=== PATIENT | male | born 1980 | race Caucasian/White ===

== ENCOUNTER 2020-12-03 21:43 | Emergency (ER) | payer MEDICAID ==
[~2020-12-03] VITALS: Ht 172.7 cm; Wt 77.0 kg
[2020-12-03] MEDS ORDERED: LEVE1000 MT (22:14)
[2020-12-03] MEDS ORDERED: LEVETIRACETAM 500MG/5ML CUP PO ONE (22:15)
[2020-12-03] MEDS ORDERED: LORAZEPAM 2MG/ML CPJ IM PRN (22:24)
[2020-12-03] MEDS ORDERED: LEVETIRACETAM 500MG PREMIX 100 ML IV ONE ×2 (22:24→22:25)
[2020-12-03] MEDS ORDERED: LORAZEPAM 2MG/ML CPJ IV ONE (22:30)
[2020-12-03] MEDS ORDERED: ONDANSETRON HCL 4MG/2ML INJ IV ONE (22:45)
[2020-12-04 00:16] LABS: BASOPHILS % 0.3 % (0.0-2.0); EOSINOPHILS % 0.7 % (0.0-5.0); HEMATOCRIT. 42.7 % (42.0-52.0); HEMOGLOBIN. 14.1 g/dL (14.0-18.0); LYMPHOCYTES % 19.4 % (20.0-50.0); MEAN CORPUSCULAR HEMOGLOBIN 26.9 pg (28.0-32.0); MEAN CORPUSCULAR VOLUME 81.3 fL (80.0-94.0); MEAN PLATELET VOLUME 8.5 fl (7.4-10.4); MONOCYTES % 8.2 % (2.0-8.0); NEUTROPHILS % 71.4 % (40.0-76.0); PLATELET 188 x1000/uL (130-400); RED BLOOD CELL COUNT 5.25 mill/uL (4.7-6.1); RED CELL DISTRIBUTION WIDTH 15.7 % (11.6-14.6)
[2020-12-04 00:22] LABS: CHLORIDE 106 mEq/L (98-107)
[2020-12-04 00:26] LABS: ETHANOL BLOOD < 10 mg/dL
[2020-12-04] MEDS ORDERED: KEPP250 MT (01:20)
[2020-12-04] MEDS ORDERED: LEVE1000 MT (01:21)
[2020-12-04] MEDS ORDERED: ONDA8TAB13 MT (01:24)
[2020-12-04] MEDS ORDERED: TRAM-529 MT (01:24)
[2020-12-04 01:25] VITALS: BP 134/79
== END 2020-12-04 01:53 | disposition home or self-care (01) ==
LOC: EDBD 21:43 → ER 23:34
DX: G40.909 Epilepsy, unspecified, not intractable, without status epilepticus (principal); K85.90 Acute pancreatitis without necrosis or infection, unspecified
CPT/HCPCS: 36415; 80053; 80320; 82962; 83690; 85025; 93005; 96365; 96366; 96375; 99291; J1953; J2405; J2060; G0480

== ENCOUNTER 2020-12-07 03:53 | Emergency (ER) | payer MEDICAID ==
[~2020-12-07] VITALS: Ht 175.3 cm; Wt 82.0 kg
[~2020-12-07 03:53] MED LIST: KEPP250 MT; LEVE1000 MT; ONDA8TAB13 MT; TRAM-529 MT
[2020-12-07] MEDS ORDERED: FAMOTIDINE 20MG/2ML VIAL IV STA (04:17)
[2020-12-07] MEDS ORDERED: MAGNESIUM/ALUMINUM HYDROXIDE/SIMETHICONE 30ML UDC PO STA (04:17)
[2020-12-07] MEDS ORDERED: SODIUM CHLORIDE 0.9% 1,000 ML IV ONE (04:30)
[2020-12-07 04:37] LABS: BASOPHILS % 0.2 % (0.0-2.0); EOSINOPHILS % 0.9 % (0.0-5.0); HEMATOCRIT. 46.5 % (42.0-52.0); HEMOGLOBIN. 15.1 g/dL (14.0-18.0); LYMPHOCYTES % 16.5 % (20.0-50.0); MEAN CORPUSCULAR HEMOGLOBIN 26.2 pg (28.0-32.0); MEAN CORPUSCULAR VOLUME 80.9 fL (80.0-94.0); MEAN PLATELET VOLUME 8.6 fl (7.4-10.4); MONOCYTES % 5.3 % (2.0-8.0); NEUTROPHILS % 77.1 % (40.0-76.0); PLATELET 202 x1000/uL (130-400); RED BLOOD CELL COUNT 5.75 mill/uL (4.7-6.1); RED CELL DISTRIBUTION WIDTH 16.1 % (11.6-14.6)
[2020-12-07] MEDS ORDERED: LEVETIRACETAM 1000MG PREMIX 100 ML IV ONE (04:45)
[2020-12-07 04:47] LABS: CHLORIDE 108 mEq/L (98-107); INR 1.1; PROTHROMBIN TIME 11.6 sec (9.6-11.0)
[2020-12-07] MEDS ORDERED: FAMO-135 MT (06:14)
[2020-12-07 06:15] VITALS: BP 124/90
== END 2020-12-07 06:30 | disposition home or self-care (01) ==
LOC: ER 04:14
DX: R10.9 Unspecified abdominal pain (principal); R56.9 Unspecified convulsions
CPT/HCPCS: 36415; 80053; 83690; 85025; 85610; 93005; 96365; 96375; 99284; J1953; J3490; J7030

== ENCOUNTER → 2021-01-06 | Emergency (ER) | payer MEDICAID ==
[~2021-01-06] VITALS: Ht 167.6 cm; Wt 82.0 kg
[~2021-01-06] MED LIST changes: +FAMO-135 MT; +KETOROLAC 30MG/ML VIAL IV ONE; +LEVETIRACETAM 1000MG PREMIX 100 ML IV ONE; +LORAZEPAM 2MG/ML CPJ IV ONE; +MORPHINE SULFATE 4 MG/ML CPJ (NOT FOR IM USE) IV STA; +ONDANSETRON HCL 4MG/2ML INJ IV STA
[2021-01-06 15:05] LABS: CHLORIDE 104 mEq/L (98-107)
[2021-01-06 15:19] LABS: BASOPHILS % 0.4 % (0.0-2.0); EOSINOPHILS % 0.5 % (0.0-5.0); HEMATOCRIT. 45.1 % (42.0-52.0); HEMOGLOBIN. 15.4 g/dL (14.0-18.0); MEAN CORPUSCULAR HEMOGLOBIN 27.6 pg (28.0-32.0); MEAN CORPUSCULAR VOLUME 80.9 fL (80.0-94.0); MEAN PLATELET VOLUME 8.9 fl (7.4-10.4); MONOCYTES % 6.4 % (2.0-8.0); NEUTROPHILS % 71.7 % (40.0-76.0); PLATELET 201 x1000/uL (130-400); RED BLOOD CELL COUNT 5.58 mill/uL (4.7-6.1); RED CELL DISTRIBUTION WIDTH 16.6 % (11.6-14.6)
[2021-01-06 16:15] LABS: INR 1.1; PROTHROMBIN TIME 11.8 sec (9.6-11.0)
[2021-01-06 21:12] VITALS: BP 139/75
== END | disposition left against medical advice (07) ==
LOC: ER 12:08
DX: G40.909 Epilepsy, unspecified, not intractable, without status epilepticus (principal); K85.90 Acute pancreatitis without necrosis or infection, unspecified; R10.31 Right lower quadrant pain; K21.9 Gastro-esophageal reflux disease without esophagitis; F12.10 Cannabis abuse, uncomplicated
CPT/HCPCS: 36415; 74176; 80053; 83690; 85025; 85610; 96365; 96375; 99285; J1885; J1953; J2060

== ENCOUNTER 2021-01-13 16:51 | Emergency (ER) | payer MEDICAID, MEDICARE ==
[~2021-01-13] VITALS: Ht 177.8 cm; Wt 91.0 kg
[~2021-01-13 16:51] MED LIST changes: -KETOROLAC 30MG/ML VIAL IV ONE; -LEVETIRACETAM 1000MG PREMIX 100 ML IV ONE; -LORAZEPAM 2MG/ML CPJ IV ONE; -MORPHINE SULFATE 4 MG/ML CPJ (NOT FOR IM USE) IV STA; -ONDANSETRON HCL 4MG/2ML INJ IV STA
[2021-01-13 16:56] VITALS: BP 126/84
== END 2021-01-13 19:03 | disposition left against medical advice (07) ==
LOC: ER 17:20
DX: R10.13 Epigastric pain (principal); R11.10 Vomiting, unspecified; G40.909 Epilepsy, unspecified, not intractable, without status epilepticus; K21.9 Gastro-esophageal reflux disease without esophagitis
CPT/HCPCS: 99283

== ENCOUNTER 2021-02-06 16:53 | Emergency (ER) | payer MEDICARE, MEDICAID ==
[~2021-02-06] VITALS: Ht 172.7 cm; Wt 93.0 kg
[2021-02-06] MEDS ORDERED: ONDANSETRON 4MG ODT PO STA (17:17)
[2021-02-06] MEDS ORDERED: ACETAMINOPHEN 325MG TABLET PO STA (17:17)
[2021-02-06 18:07] LABS: BASOPHILS % 0.2 % (0.0-2.0); EOSINOPHILS % 0.6 % (0.0-5.0); HEMATOCRIT. 44.1 % (42.0-52.0); HEMOGLOBIN. 14.8 g/dL (14.0-18.0); LYMPHOCYTES % 14.7 % (20.0-50.0); MEAN CORPUSCULAR VOLUME 80.7 fL (80.0-94.0); MEAN PLATELET VOLUME 8.4 fl (7.4-10.4); MONOCYTES % 9.1 % (2.0-8.0); NEUTROPHILS % 75.4 % (40.0-76.0); PLATELET 219 x1000/uL (130-400); RED BLOOD CELL COUNT 5.46 mill/uL (4.7-6.1); RED CELL DISTRIBUTION WIDTH 16.3 % (11.6-14.6)
[2021-02-06 18:14] LABS: CHLORIDE 102 mEq/L (98-107)
[2021-02-06 18:18] LABS: PROTHROMBIN TIME 10.7 sec (9.6-11.0)
[2021-02-06] MEDS: SODIUM CHLORIDE 0.9% 1,000 ML IV ONE ×2 (19:45→22:27)
[2021-02-06] MEDS: LEVETIRACETAM 500MG PREMIX 100 ML IV ONE (22:27)
[2021-02-07] MEDS: ACETAMINOPHEN 325MG TABLET PO NR (00:01)
[2021-02-07] MEDS: ONDANSETRON 4MG ODT PO NR (00:01)
[2021-02-07 01:37] VITALS: BP 120/71
== END 2021-02-07 01:40 | disposition home or self-care (01) ==
LOC: ER 16:53
DX: R56.9 Unspecified convulsions (principal); F12.10 Cannabis abuse, uncomplicated; K21.9 Gastro-esophageal reflux disease without esophagitis; Z86.59 Personal history of other mental and behavioral disorders
CPT/HCPCS: 36415; 80053; 82962; 83605; 84484; 85025; 96365; 99285; J1953; J7030; Q0162

== ENCOUNTER 2021-08-13 12:48 | Emergency (ER) | payer MEDICAID ==
[~2021-08-13] VITALS: Ht 175.3 cm; Wt 87.0 kg
[2021-08-13] MEDS ORDERED: ONDANSETRON HCL 4MG/2ML INJ IV STA (13:14)
[2021-08-13] MEDS ORDERED: SODIUM CHLORIDE 0.9% 1,000 ML IV ONE ×2 (13:15→16:30)
[2021-08-13 13:28] LABS: BASOPHILS % 0.6 % (0.0-2.0); EOSINOPHILS % 1.1 % (0.0-5.0); HEMATOCRIT. 43.1 % (42.0-52.0); HEMOGLOBIN. 14.3 g/dL (14.0-18.0); LYMPHOCYTES % 20.8 % (20.0-50.0); MEAN CORPUSCULAR HEMOGLOBIN 27.5 pg (28.0-32.0); MEAN CORPUSCULAR VOLUME 82.7 fL (80.0-94.0); MEAN PLATELET VOLUME 8.2 fl (7.4-10.4); MONOCYTES % 7.3 % (2.0-8.0); NEUTROPHILS % 70.2 % (40.0-76.0); PLATELET 235 x1000/uL (130-400); RED BLOOD CELL COUNT 5.21 mill/uL (4.7-6.1); RED CELL DISTRIBUTION WIDTH 15.3 % (11.6-14.6)
[2021-08-13 13:34] LABS: CHLORIDE 105 mEq/L (98-107)
[2021-08-13] MEDS ORDERED: KETOROLAC 30MG/ML VIAL IV ONE (13:45)
[2021-08-13] MEDS ORDERED: MORPHINE SULFATE 4 MG/ML CPJ (NOT FOR IM USE) IV ONE (18:15)
[2021-08-13 19:02] LABS: CLARITY URINE CLEAR (CLEAR); COLOR URINE YELLOW (YELLOW); KETONES URINE NEGATIVE (NEGATIVE); LEUKOCYTE ESTERASE URINE NEGATIVE (NEGATIVE); NITRITE URINE NEGATIVE (NEGATIVE); OCCULT BLOOD URINE TRACE (NEGATIVE); PROTEIN URINE 1+ (NEGATIVE); SPECIFIC GRAVITY URINE 1.013 (1.005-1.030); UROBILINOGEN URINE 0.2 E.U./dL (0.2-1.0)
[2021-08-13 22:44] VITALS: BP 129/82
== END 2021-08-13 23:17 | disposition left against medical advice (07) ==
LOC: ER 12:56 → EDBEDREQSVC 18:54 → CANBEDREQ 22:46 → ER 23:17
DX: K85.90 Acute pancreatitis without necrosis or infection, unspecified (principal); K21.9 Gastro-esophageal reflux disease without esophagitis; R56.9 Unspecified convulsions; Z20.822 Contact with and (suspected) exposure to COVID-19
CPT/HCPCS: 36415; 76705; 80053; 81003; 83690; 85025; 87426; 96361; 96374; 96375; 99285; J1885; J2270; J2405; J7030

== ENCOUNTER 2021-08-18 14:01 | Emergency (ER) | payer MEDICAID ==
[~2021-08-18] VITALS: Ht 167.6 cm; Wt 91.0 kg
[2021-08-18] MEDS ORDERED: MAGNESIUM/ALUMINUM HYDROXIDE/SIMETHICONE 30ML UDC PO STA (15:23)
[2021-08-18] MEDS ORDERED: FAMOTIDINE 20MG/2ML VIAL IV STA (15:23)
[2021-08-18] MEDS ORDERED: SODIUM CHLORIDE 0.9% 1,000 ML IV ONE (15:30)
[2021-08-18] MEDS ORDERED: KETOROLAC 15MG/ML VIAL IV ONE (15:45)
[2021-08-18 15:59] LABS: BASOPHILS % 0.3 % (0.0-2.0); EOSINOPHILS % 0.6 % (0.0-5.0); HEMATOCRIT. 40.5 % (42.0-52.0); HEMOGLOBIN. 13.5 g/dL (14.0-18.0); LYMPHOCYTES % 16.1 % (20.0-50.0); MEAN CORPUSCULAR HEMOGLOBIN 27.5 pg (28.0-32.0); MEAN CORPUSCULAR VOLUME 82.8 fL (80.0-94.0); PLATELET 205 x1000/uL (130-400); RED CELL DISTRIBUTION WIDTH 14.9 % (11.6-14.6)
[2021-08-18 16:03] LABS: CHLORIDE 105 mEq/L (98-107)
[2021-08-18 16:07] LABS: ETHANOL BLOOD < 10 mg/dL
[2021-08-18 18:18] VITALS: BP 138/71
[2021-08-18] MEDS ORDERED: ONDANSETRON HCL 4MG/2ML INJ IV ONE (18:30)
== END 2021-08-18 18:50 | disposition left against medical advice (07) ==
LOC: ER 14:01
DX: R10.13 Epigastric pain (principal); K85.90 Acute pancreatitis without necrosis or infection, unspecified; G40.909 Epilepsy, unspecified, not intractable, without status epilepticus; R11.10 Vomiting, unspecified; F12.10 Cannabis abuse, uncomplicated
CPT/HCPCS: 36415; 71045; 80053; 80320; 83605; 83690; 83880; 84484; 85025; 93005; 96361; 96374; 96375; 99285; J1885; J3490; J7030; G0480

== ENCOUNTER 2021-08-20 13:26 | Emergency (ER) | payer MEDICAID ==
[~2021-08-20] VITALS: Ht 167.6 cm; Wt 91.0 kg
[2021-08-20] MEDS ORDERED: ONDANSETRON HCL 4MG/2ML INJ IV STA (14:17)
[2021-08-20] MEDS ORDERED: SODIUM CHLORIDE 0.9% 1,000 ML IV ONE (14:30)
[2021-08-20] MEDS ORDERED: LORAZEPAM 2MG/ML CPJ IV ONE (14:30)
[2021-08-20 14:31] LABS: BASOPHILS % 0.5 % (0.0-2.0); EOSINOPHILS % 1.1 % (0.0-5.0); HEMATOCRIT. 44.6 % (42.0-52.0); LYMPHOCYTES % 22.8 % (20.0-50.0); MEAN CORPUSCULAR VOLUME 83.5 fL (80.0-94.0); MONOCYTES % 6.6 % (2.0-8.0); PLATELET 279 x1000/uL (130-400); RED BLOOD CELL COUNT 5.35 mill/uL (4.7-6.1); RED CELL DISTRIBUTION WIDTH 15.5 % (11.6-14.6)
[2021-08-20 14:42] LABS: CHLORIDE 104 mEq/L (98-107)
[2021-08-20 18:51] VITALS: BP 133/84
[2021-08-20 19:03] LABS: CLARITY URINE CLEAR (CLEAR); COLOR URINE YELLOW (YELLOW); KETONES URINE NEGATIVE (NEGATIVE); LEUKOCYTE ESTERASE URINE NEGATIVE (NEGATIVE); NITRITE URINE NEGATIVE (NEGATIVE); OCCULT BLOOD URINE NEGATIVE (NEGATIVE); PH URINE 6.5 (4.5-8.0); PROTEIN URINE 1+ (NEGATIVE); SPECIFIC GRAVITY URINE 1.015 (1.005-1.030); UROBILINOGEN URINE 0.2 E.U./dL (0.2-1.0)
== END 2021-08-20 19:34 | disposition left against medical advice (07) ==
LOC: ER 13:37
DX: K85.90 Acute pancreatitis without necrosis or infection, unspecified (principal); R10.9 Unspecified abdominal pain; R56.9 Unspecified convulsions
CPT/HCPCS: 36415; 80053; 81003; 83690; 85025; 96374; 96375; 99284; J2060; J2405; J7030; 99291

== ENCOUNTER 2021-09-02 14:06 | Inpatient (IN) | payer MEDICAID ==
[~2021-09-02] VITALS: Ht 165.1 cm; Wt 75.7 kg
[2021-09-02] MEDS ORDERED: ONDANSETRON HCL 4MG/2ML INJ IV STA ×2 (14:47→18:00)
[2021-09-02] MEDS ORDERED: LORAZEPAM 2MG/ML CPJ IV ONE ×2 (15:00→17:45)
[2021-09-02] MEDS ORDERED: LEVETIRACETAM 500MG PREMIX 100 ML IV ONE (15:15)
[2021-09-02 15:16] LABS: BASOPHILS % 0.4 % (0.0-2.0); EOSINOPHILS % 1.1 % (0.0-5.0); HEMATOCRIT. 41.3 % (42.0-52.0); HEMOGLOBIN. 13.7 g/dL (14.0-18.0); LYMPHOCYTES % 13.6 % (20.0-50.0); MEAN CORPUSCULAR HEMOGLOBIN 27.7 pg (28.0-32.0); MEAN CORPUSCULAR VOLUME 83.7 fL (80.0-94.0); MEAN PLATELET VOLUME 8.6 fl (7.4-10.4); MONOCYTES % 6.3 % (2.0-8.0); NEUTROPHILS % 78.6 % (40.0-76.0); PLATELET 174 x1000/uL (130-400); RED BLOOD CELL COUNT 4.93 mill/uL (4.7-6.1); RED CELL DISTRIBUTION WIDTH 15.6 % (11.6-14.6)
[2021-09-02 15:19] LABS: CHLORIDE 105 mEq/L (98-107)
[2021-09-02 15:24] LABS: ETHANOL BLOOD < 10 mg/dL
[2021-09-02] MEDS ORDERED: MORPHINE SULFATE 4 MG/ML CPJ (NOT FOR IM USE) IV STA (18:00)
[2021-09-02 21:10] VITALS: BP_SYST 116; BP_SYST 136; BP_DIAS 65
[2021-09-02 21:15] VITALS: BP 116/65
[2021-09-02] MEDS: HYDROCODONE/ACETAMINOPHEN 5/325MG TABLET PO PRN (22:59)
[2021-09-02] MEDS ORDERED: ONDANSETRON HCL 4MG/2ML INJ IV PRN (23:00)
[2021-09-02] MEDS: PANTOPRAZOLE 40MG DR TABLET PO SCH (23:00)
[2021-09-02] MEDS ORDERED: NALOXONE HCL 0.4MG/ML VIAL IV PRN (23:00)
[2021-09-03] MEDS: HYDROCODONE/ACETAMINOPHEN 5/325MG TABLET PO PRN ×3 (04:28→17:48)
[2021-09-03 04:30] VITALS: BP 123/72
[2021-09-03 08:00] VITALS: BP 129/82
[2021-09-03] MEDS: PANTOPRAZOLE 40MG DR TABLET PO SCH (08:49)
[2021-09-03] MEDS ORDERED: LEVETIRACETAM 500MG TABLET PO SCH (09:00)
[2021-09-03 12:00] VITALS: BP 138/89
[2021-09-03] MEDS ORDERED: LORAZEPAM 2MG/ML CPJ IV PRN (14:00)
[2021-09-03 16:00] VITALS: BP 121/75
[2021-09-03 18:05] VITALS: BP 121/75
[2021-09-03] MEDS ORDERED: FAMOTIDINE 20MG TABLET PO SCH (21:00)
== END 2021-09-03 18:20 | disposition home or self-care (01) | DRG 53 ==
LOC: ER 14:11 → 6WST 17:54 → ENRESERV 20:17
PROVIDERS: ADMIT Internal Medicine; ATTEND Internal Medicine
DX: G40.909 Epilepsy, unspecified, not intractable, without status epilepticus (principal); K86.1 Other chronic pancreatitis; Z82.49 Family history of ischemic heart disease and other diseases of the circulatory system; Z91.19 Patient's noncompliance with other medical treatment and regimen; Z87.19 Personal history of other diseases of the digestive system
CPT/HCPCS: 36415; 71045; 74176; 80053; 80320; 85025; 93005; 99285; J1953; J2060; J2270; J2405; G0480

== ENCOUNTER 2021-09-10 11:06 | Emergency (ER) | payer MEDICAID ==
[~2021-09-10] VITALS: Ht 170.2 cm; Wt 80.0 kg
[2021-09-10 11:23] VITALS: BP 144/91
[2021-09-10] MEDS ORDERED: MORPHINE SULFATE 4 MG/ML CPJ (NOT FOR IM USE) IV STA (11:44)
[2021-09-10] MEDS ORDERED: SODIUM CHLORIDE 0.9% 1,000 ML IV ONE (11:45)
== END 2021-09-10 12:05 | disposition left against medical advice (07) ==
LOC: ER 11:06
DX: R10.9 Unspecified abdominal pain (principal); R56.9 Unspecified convulsions; F10.20 Alcohol dependence, uncomplicated
CPT/HCPCS: 93005; 99283; J7030

== ENCOUNTER 2021-09-11 04:49 | Emergency (ER) | payer MEDICAID ==
[~2021-09-11] VITALS: Ht 162.6 cm; Wt 73.0 kg
[2021-09-11] MEDS ORDERED: ACETAMINOPHEN 325MG TABLET PO STA (05:23)
[2021-09-11] MEDS ORDERED: ONDANSETRON HCL 4MG TABLET PO ONE (05:30)
[2021-09-11 06:35] LABS: BASOPHILS % 0.5 % (0.0-2.0); EOSINOPHILS % 0.6 % (0.0-5.0); HEMATOCRIT. 42.4 % (42.0-52.0); HEMOGLOBIN. 14.3 g/dL (14.0-18.0); LYMPHOCYTES % 13.2 % (20.0-50.0); MEAN CORPUSCULAR HEMOGLOBIN 27.9 pg (28.0-32.0); MEAN CORPUSCULAR VOLUME 82.9 fL (80.0-94.0); MEAN PLATELET VOLUME 8.6 fl (7.4-10.4); MONOCYTES % 5.9 % (2.0-8.0); NEUTROPHILS % 79.8 % (40.0-76.0); PLATELET 176 x1000/uL (130-400); RED BLOOD CELL COUNT 5.11 mill/uL (4.7-6.1); RED CELL DISTRIBUTION WIDTH 15.7 % (11.6-14.6)
[2021-09-11 06:51] LABS: CHLORIDE 106 mEq/L (98-107)
[2021-09-11] MEDS ORDERED: ONDANSETRON HCL 4MG/2ML INJ IV STA (07:17)
[2021-09-11] MEDS ORDERED: KETOROLAC 30MG/ML VIAL IV ONE (07:30)
[2021-09-11] MEDS ORDERED: SODIUM CHLORIDE 0.9% 1,000 ML IV ONE (07:30)
[2021-09-11] MEDS ORDERED: LEVETIRACETAM 1000MG PREMIX 100 ML IV ONE (07:30)
[2021-09-11] MEDS ORDERED: LORAZEPAM 1MG TABLET PO ONE (07:45)
[2021-09-11 09:08] LABS: CLARITY URINE CLEAR (CLEAR); COLOR URINE YELLOW (YELLOW); KETONES URINE 1+ (NEGATIVE); LEUKOCYTE ESTERASE URINE NEGATIVE (NEGATIVE); NITRITE URINE NEGATIVE (NEGATIVE); OCCULT BLOOD URINE TRACE (NEGATIVE); PH URINE 6.5 (4.5-8.0); PROTEIN URINE 3+ (NEGATIVE); SPECIFIC GRAVITY URINE 1.027 (1.005-1.030)
[2021-09-11 09:21] LABS: *BARBITURATES SCREEN URINE NEGATIVE (NEGATIVE); *BENZODIAZEPINES SCREEN URINE NEGATIVE (NEGATIVE); *COCAINE SCREEN URINE NEGATIVE (NEGATIVE); METHADONE URINE SCREEN NEGATIVE (NEGATIVE); OPIATES URINE SCREEN NEGATIVE (NEGATIVE); PHENCYCLIDINE URINE SCREEN NEGATIVE (NEGATIVE)
[2021-09-11 09:22] LABS: *AMPHETAMINES SCREEN URINE NEGATIVE (NEGATIVE); CANNABINOID URINE SCREEN PRESUMTIVE POSITIVE (NEGATIVE)
[2021-09-11] MEDS ORDERED: KETOROLAC 30MG/ML VIAL IV NR (14:00)
[2021-09-11] MEDS ORDERED: LORAZEPAM 0.5MG TABLET PO NR (14:00)
[2021-09-11 15:00] VITALS: BP 140/70
== END 2021-09-11 15:04 | disposition home or self-care (01) ==
LOC: ER 05:24 → EDBEDREQ 09:59 → EDBEDREQTM 09:59 → ENRESERV 14:35 → ER 15:04 → CANBEDREQ 17:53
DX: K85.90 Acute pancreatitis without necrosis or infection, unspecified (principal); R56.9 Unspecified convulsions
CPT/HCPCS: 36415; 70450; 80053; 80305; 80320; 81003; 83690; 85025; 96365; 96366; 96375; 96376; 99285; J1885; J1953; J2405; J7030; G0480

== ENCOUNTER 2021-10-07 13:37 | Emergency (ER) | payer MEDICAID ==
[~2021-10-07] VITALS: Ht 165.1 cm; Wt 70.0 kg
[2021-10-07 14:20] VITALS: BP 127/78
[2021-10-07] MEDS ORDERED: LEVETIRACETAM 1000MG PREMIX 100 ML IV ONE (14:30)
[2021-10-07 15:07] LABS: BASOPHILS % 0.3 % (0.0-2.0); EOSINOPHILS % 0.5 % (0.0-5.0); HEMATOCRIT. 42.9 % (42.0-52.0); HEMOGLOBIN. 14.5 g/dL (14.0-18.0); LYMPHOCYTES % 11.2 % (20.0-50.0); MEAN CORPUSCULAR HEMOGLOBIN 27.6 pg (28.0-32.0); MEAN CORPUSCULAR VOLUME 81.7 fL (80.0-94.0); MEAN PLATELET VOLUME 8.3 fl (7.4-10.4); MONOCYTES % 4.3 % (2.0-8.0); NEUTROPHILS % 83.7 % (40.0-76.0); PLATELET 389 x1000/uL (130-400); RED BLOOD CELL COUNT 5.25 mill/uL (4.7-6.1); RED CELL DISTRIBUTION WIDTH 16.1 % (11.6-14.6)
== END 2021-10-07 16:00 | disposition left against medical advice (07) ==
LOC: ER 13:43
DX: R56.9 Unspecified convulsions (principal); Z76.5 Malingerer [conscious simulation]
CPT/HCPCS: 36415; 82140; 85025; 99283; Z7610

== ENCOUNTER 2021-10-19 11:09 | Emergency (ER) | payer MEDICAID ==
[~2021-10-19] VITALS: Ht 167.6 cm; Wt 90.0 kg
[2021-10-19] MEDS ORDERED: ACETAMINOPHEN 325MG TABLET PO STA (11:11)
[2021-10-19 11:18] VITALS: BP 124/88
[2021-10-19 11:57] LABS: BASOPHILS % 0.3 % (0.0-2.0); EOSINOPHILS % 0.5 % (0.0-5.0); HEMATOCRIT. 39.5 % (42.0-52.0); HEMOGLOBIN. 13.1 g/dL (14.0-18.0); LYMPHOCYTES % 19.6 % (20.0-50.0); MEAN CORPUSCULAR HEMOGLOBIN 27.6 pg (28.0-32.0); MEAN CORPUSCULAR VOLUME 83.5 fL (80.0-94.0); MEAN PLATELET VOLUME 8.4 fl (7.4-10.4); MONOCYTES % 6.5 % (2.0-8.0); NEUTROPHILS % 73.1 % (40.0-76.0); PLATELET 173 x1000/uL (130-400); RED BLOOD CELL COUNT 4.73 mill/uL (4.7-6.1); RED CELL DISTRIBUTION WIDTH 15.5 % (11.6-14.6)
[2021-10-19] MEDS ORDERED: OMEPRAZOLE 20MG CAPSULE EXTENDED RELEASE PO ONE (12:15)
[2021-10-19] MEDS ORDERED: MAGNESIUM/ALUMINUM HYDROXIDE/SIMETHICONE 30ML UDC PO ONE (12:15)
[2021-10-19] MEDS ORDERED: VISCOUS LIDOCAINE 2% 15 ML UDC MM PRN (12:15)
[2021-10-19 12:23] LABS: CHLORIDE 105 mEq/L (98-107)
[2021-10-19 12:32] LABS: ETHANOL BLOOD < 10 mg/dL
[2021-10-19] MEDS ORDERED: SODIUM CHLORIDE 0.9% 1,000 ML IV ONE (12:45)
[2021-10-19] MEDS ORDERED: ONDANSETRON HCL 4MG/2ML INJ IV ONE (12:45)
[2021-10-19] MEDS ORDERED: MORPHINE SULFATE 4 MG/ML CPJ (NOT FOR IM USE) IV ONE (12:45)
== END 2021-10-19 12:55 | disposition left against medical advice (07) ==
LOC: ER 11:49
DX: K85.90 Acute pancreatitis without necrosis or infection, unspecified (principal); R11.0 Nausea; F10.229 Alcohol dependence with intoxication, unspecified; Y90.0 Blood alcohol level of less than 20 mg/100 ml; Z79.899 Other long term (current) drug therapy
CPT/HCPCS: 36415; 80053; 80320; 83690; 85025; 99283; J7030; G0480

== ENCOUNTER 2021-10-22 06:59 | Emergency (ER) | payer MEDICAID ==
[~2021-10-22] VITALS: Ht 172.7 cm; Wt 100.0 kg
[2021-10-22] MEDS ORDERED: ONDANSETRON HCL 4MG/2ML INJ IV STA (07:08)
[2021-10-22] MEDS ORDERED: MORPHINE SULFATE 4 MG/ML CPJ (NOT FOR IM USE) IV STA (07:08)
[2021-10-22] MEDS ORDERED: FAMOTIDINE 20MG/2ML VIAL IV STA (07:08)
[2021-10-22] MEDS ORDERED: FAMOTIDINE 20MG/2ML VIAL IV NR (09:15)
[2021-10-22] MEDS ORDERED: MORPHINE SULFATE 4 MG/ML CPJ (NOT FOR IM USE) IV NR (09:15)
[2021-10-22] MEDS ORDERED: ONDANSETRON HCL 4MG/2ML INJ IV NR (09:15)
[2021-10-22 09:30] VITALS: BP 162/106
[2021-10-22] MEDS ORDERED: BUPRENORPHINE 8MG SL TABLET SL ONE (09:45)
[2021-10-22 10:15] LABS: CHLORIDE 103 mEq/L (98-107)
[2021-10-22 10:16] LABS: BASOPHILS % 0.3 % (0.0-2.0); EOSINOPHILS % 0.5 % (0.0-5.0); HEMATOCRIT. 43.7 % (42.0-52.0); HEMOGLOBIN. 14.1 g/dL (14.0-18.0); LYMPHOCYTES % 10.4 % (20.0-50.0); MEAN CORPUSCULAR HEMOGLOBIN 26.7 pg (28.0-32.0); MEAN CORPUSCULAR VOLUME 82.9 fL (80.0-94.0); MONOCYTES % 4.8 % (2.0-8.0); RED BLOOD CELL COUNT 5.26 mill/uL (4.7-6.1); RED CELL DISTRIBUTION WIDTH 15.9 % (11.6-14.6)
[2021-10-22] MEDS ORDERED: NALO4SPR BOTHNSTRLS (10:57)
== END 2021-10-22 11:20 | disposition home or self-care (01) ==
LOC: ER 07:21
DX: R10.9 Unspecified abdominal pain (principal); F11.23 Opioid dependence with withdrawal; R56.9 Unspecified convulsions
CPT/HCPCS: 36415; 80053; 83690; 85025; 96374; 96375; 99284; J2270; J2405; J3490

== ENCOUNTER 2021-10-26 15:15 | Emergency (ER) | payer MEDICAID ==
[~2021-10-26] VITALS: Ht 170.2 cm; Wt 82.0 kg
[~2021-10-26 15:15] MED LIST changes: +NALO4SPR BOTHNSTRLS
[2021-10-26] MEDS ORDERED: ACETAMINOPHEN 325MG TABLET PO STA (15:17)
[2021-10-26] MEDS ORDERED: MAGNESIUM/ALUMINUM HYDROXIDE/SIMETHICONE 30ML UDC PO STA (15:17)
[2021-10-26 15:27] VITALS: BP 152/102
[2021-10-26] MEDS ORDERED: MAGNESIUM/ALUMINUM HYDROXIDE/SIMETHICONE 30ML UDC PO NR (17:30)
[2021-10-26] MEDS ORDERED: ACETAMINOPHEN 325MG TABLET PO NR (17:30)
== END 2021-10-26 17:34 | disposition left against medical advice (07) ==
LOC: ER 15:15
DX: R10.33 Periumbilical pain (principal); R11.2 Nausea with vomiting, unspecified; F10.229 Alcohol dependence with intoxication, unspecified; Y90.0 Blood alcohol level of less than 20 mg/100 ml; F12.10 Cannabis abuse, uncomplicated; Z79.899 Other long term (current) drug therapy
CPT/HCPCS: 99283

== ENCOUNTER 2021-12-08 11:47 | Emergency (ER) | payer MEDICAID ==
[~2021-12-08] VITALS: Ht 170.2 cm; Wt 69.0 kg
[2021-12-08] MEDS ORDERED: VISCOUS LIDOCAINE 2% 15 ML UDC MM STA (12:09)
[2021-12-08] MEDS ORDERED: ACETAMINOPHEN 325MG TABLET PO ONE (12:15)
[2021-12-08] MEDS ORDERED: ONDANSETRON 4MG ODT PO ONE (12:15)
[2021-12-08] MEDS ORDERED: MAGNESIUM/ALUMINUM HYDROXIDE/SIMETHICONE 30ML UDC PO ONE (12:15)
[2021-12-08] MEDS ORDERED: FAMOTIDINE 20MG TABLET PO ONE (12:15)
[2021-12-08 14:43] VITALS: BP 128/82
== END 2021-12-08 14:54 | disposition home or self-care (01) ==
LOC: ER 11:47
DX: F44.5 Conversion disorder with seizures or convulsions (principal); R10.84 Generalized abdominal pain; F10.10 Alcohol abuse, uncomplicated; F12.10 Cannabis abuse, uncomplicated; Y90.9 Presence of alcohol in blood, level not specified; Z87.19 Personal history of other diseases of the digestive system
CPT/HCPCS: 82962; 99284; Q0162

== ENCOUNTER 2021-12-12 09:27 | Emergency (ER) | payer MEDICAID ==
[~2021-12-12] VITALS: Ht 165.1 cm; Wt 85.0 kg
[2021-12-12 10:25] LABS: BASOPHILS % 0.3 % (0.0-2.0); EOSINOPHILS % 0.9 % (0.0-5.0); HEMATOCRIT. 42.5 % (42.0-52.0); HEMOGLOBIN. 13.9 g/dL (14.0-18.0); LYMPHOCYTES % 15.4 % (20.0-50.0); MEAN CORPUSCULAR HEMOGLOBIN 27.1 pg (28.0-32.0); MEAN CORPUSCULAR VOLUME 82.8 fL (80.0-94.0); MEAN PLATELET VOLUME 8.3 fl (7.4-10.4); MONOCYTES % 5.6 % (2.0-8.0); NEUTROPHILS % 77.8 % (40.0-76.0); PLATELET 208 x1000/uL (130-400); RED BLOOD CELL COUNT 5.14 mill/uL (4.7-6.1); RED CELL DISTRIBUTION WIDTH 15.8 % (11.6-14.6)
[2021-12-12] MEDS ORDERED: SODIUM CHLORIDE 0.9% 1,000 ML IV ONE (10:30)
[2021-12-12] MEDS ORDERED: LEVETIRACETAM 1000MG PREMIX 100 ML IV ONE (10:30)
[2021-12-12 10:31] LABS: CHLORIDE 101 mEq/L (98-107)
[2021-12-12 10:43] LABS: CREATINE KINASE 81 IU/L (39-308); ETHANOL BLOOD < 10 mg/dL
[2021-12-12 11:01] VITALS: BP 123/87
[2021-12-12] MEDS ORDERED: KETOROLAC 15MG/ML VIAL IV ONE (13:45)
== END 2021-12-12 13:54 | disposition left against medical advice (07) ==
LOC: ER 09:38
DX: R10.9 Unspecified abdominal pain (principal); R56.9 Unspecified convulsions; F10.229 Alcohol dependence with intoxication, unspecified; F12.10 Cannabis abuse, uncomplicated; Z79.899 Other long term (current) drug therapy
CPT/HCPCS: 36415; 71045; 80053; 80320; 82550; 83605; 83690; 83880; 84484; 85025; 93005; 96365; 99285; J1885; J1953; J7030; G0480

== ENCOUNTER 2021-12-20 10:23 | Emergency (ER) | payer MEDICAID ==
[~2021-12-20] VITALS: Ht 175.3 cm; Wt 109.0 kg
[2021-12-20 10:30] VITALS: BP 133/86
[2021-12-20] MEDS ORDERED: VISCOUS LIDOCAINE 2% 15 ML UDC PO STA (12:35)
[2021-12-20] MEDS ORDERED: ONDANSETRON HCL 4MG/2ML INJ IV STA (12:35)
[2021-12-20] MEDS ORDERED: MAGNESIUM/ALUMINUM HYDROXIDE/SIMETHICONE 30ML UDC PO STA (12:35)
[2021-12-20] MEDS ORDERED: KETOROLAC 30MG/ML VIAL IV STA (12:35)
[2021-12-20] MEDS ORDERED: SODIUM CHLORIDE 0.9% 1,000 ML IV ONE (12:45)
[2021-12-20 13:30] LABS: BASOPHILS % 0.4 % (0.0-2.0); EOSINOPHILS % 0.8 % (0.0-5.0); HEMATOCRIT. 42.8 % (42.0-52.0); HEMOGLOBIN. 14.3 g/dL (14.0-18.0); LYMPHOCYTES % 16.2 % (20.0-50.0); MEAN CORPUSCULAR HEMOGLOBIN 27.5 pg (28.0-32.0); MEAN CORPUSCULAR VOLUME 82.2 fL (80.0-94.0); MEAN PLATELET VOLUME 8.6 fl (7.4-10.4); MONOCYTES % 4.8 % (2.0-8.0); NEUTROPHILS % 77.8 % (40.0-76.0); PLATELET 244 x1000/uL (130-400); RED CELL DISTRIBUTION WIDTH 16.1 % (11.6-14.6)
[2021-12-20 13:34] LABS: CHLORIDE 101 mEq/L (98-107)
[2021-12-20 13:46] LABS: ETHANOL BLOOD < 10 mg/dL
== END 2021-12-20 15:10 | disposition left against medical advice (07) ==
LOC: ER 10:23
DX: R10.9 Unspecified abdominal pain (principal); R56.9 Unspecified convulsions
CPT/HCPCS: 36415; 80053; 80320; 83690; 85025; 96360; 99283; J7030; G0480

== ENCOUNTER 2021-12-22 07:08 | Emergency (ER) | payer MEDICAID ==
[~2021-12-22] VITALS: Ht 167.6 cm; Wt 82.0 kg
[2021-12-22 07:22] VITALS: BP 148/94
[2021-12-22] MEDS ORDERED: ONDANSETRON HCL 4MG/2ML INJ IV STA (08:16)
[2021-12-22] MEDS ORDERED: KETOROLAC 30MG/ML VIAL IV STA (08:16)
[2021-12-22] MEDS ORDERED: SODIUM CHLORIDE 0.9% 1,000 ML IV ONE (08:30)
[2021-12-22] MEDS ORDERED: MIDAZOLAM HCL 2 MG/2 ML VIAL IV ONE (08:30)
== END 2021-12-22 12:48 | disposition left against medical advice (07) ==
LOC: ER 07:08
DX: R10.30 Lower abdominal pain, unspecified (principal)
CPT/HCPCS: 99283; J7030

== ENCOUNTER 2022-01-07 10:32 | Emergency (ER) | payer MEDICAID ==
[~2022-01-07] VITALS: Ht 185.4 cm; Wt 100.0 kg
[2022-01-07] MEDS ORDERED: MORPHINE SULFATE 4 MG/ML CPJ (NOT FOR IM USE) IV STA (10:40)
[2022-01-07] MEDS ORDERED: ONDANSETRON HCL 4MG/2ML INJ IV STA (10:40)
[2022-01-07] MEDS ORDERED: SODIUM CHLORIDE 0.9% 1,000 ML IV ONE (10:45)
[2022-01-07] MEDS ORDERED: LEVETIRACETAM 1000MG PREMIX 100 ML IV ONE (10:45)
[2022-01-07] MEDS ORDERED: FAMOTIDINE 20MG/2ML VIAL IV ONE (10:45)
[2022-01-07 11:10] LABS: BASOPHILS % 0.6 % (0.0-2.0); EOSINOPHILS % 1.4 % (0.0-5.0); HEMATOCRIT. 43.6 % (42.0-52.0); HEMOGLOBIN. 14.7 g/dL (14.0-18.0); MEAN CORPUSCULAR HEMOGLOBIN 27.9 pg (28.0-32.0); MEAN CORPUSCULAR VOLUME 82.6 fL (80.0-94.0); MEAN PLATELET VOLUME 8.4 fl (7.4-10.4); MONOCYTES % 5.5 % (2.0-8.0); NEUTROPHILS % 76.5 % (40.0-76.0); PLATELET 209 x1000/uL (130-400); RED BLOOD CELL COUNT 5.28 mill/uL (4.7-6.1)
[2022-01-07 11:20] LABS: CHLORIDE 106 mEq/L (98-107)
[2022-01-07] MEDS ORDERED: MAG-55 MT (13:09)
[2022-01-07] MEDS ORDERED: FAMO-135 MT (13:09)
[2022-01-07 13:30] LABS: CLARITY URINE CLEAR (CLEAR); COLOR URINE YELLOW (YELLOW); KETONES URINE TRACE (NEGATIVE); LEUKOCYTE ESTERASE URINE NEGATIVE (NEGATIVE); NITRITE URINE NEGATIVE (NEGATIVE); OCCULT BLOOD URINE 1+ (NEGATIVE); PROTEIN URINE 3+ (NEGATIVE); SPECIFIC GRAVITY URINE 1.026 (1.005-1.030)
[2022-01-07 13:42] VITALS: BP 128/72
[2022-01-07 14:00] LABS: *AMPHETAMINES SCREEN URINE NEGATIVE (NEGATIVE); *BARBITURATES SCREEN URINE NEGATIVE (NEGATIVE); *BENZODIAZEPINES SCREEN URINE PRESUMTIVE POSITIVE (NEGATIVE); *COCAINE SCREEN URINE NEGATIVE (NEGATIVE); CANNABINOID URINE SCREEN PRESUMTIVE POSITIVE (NEGATIVE); METHADONE URINE SCREEN NEGATIVE (NEGATIVE); OPIATES URINE SCREEN PRESUMTIVE POSITIVE (NEGATIVE); PHENCYCLIDINE URINE SCREEN NEGATIVE (NEGATIVE)
== END 2022-01-07 13:43 | disposition home or self-care (01) ==
LOC: ER 10:32
DX: R10.9 Unspecified abdominal pain (principal); F12.90 Cannabis use, unspecified, uncomplicated; R56.9 Unspecified convulsions; Z87.19 Personal history of other diseases of the digestive system
CPT/HCPCS: 36415; 74176; 80053; 80305; 81003; 83690; 85025; 96365; 96375; 99284; J1953; J2270; J2405; J3490; J7030

== ENCOUNTER 2022-01-11 12:13 | Emergency (ER) | payer MEDICAID ==
[~2022-01-11] VITALS: Ht 170.2 cm; Wt 88.0 kg
[~2022-01-11 12:13] MED LIST changes: +MAG-55 MT
[2022-01-11 12:21] VITALS: BP 135/95
[2022-01-11] MEDS ORDERED: FAMOTIDINE 20MG/2ML VIAL IV STA (12:23)
[2022-01-11] MEDS ORDERED: VISCOUS LIDOCAINE 2% 15 ML UDC PO STA (12:23)
[2022-01-11] MEDS ORDERED: ONDANSETRON HCL 4MG/2ML INJ IV STA (12:23)
[2022-01-11] MEDS ORDERED: MAGNESIUM/ALUMINUM HYDROXIDE/SIMETHICONE 30ML UDC PO STA (12:23)
[2022-01-11] MEDS ORDERED: SODIUM CHLORIDE 0.9% 1,000 ML IV ONE (12:30)
== END 2022-01-11 13:00 | disposition left against medical advice (07) ==
LOC: ER 12:25
DX: R10.13 Epigastric pain (principal); R11.2 Nausea with vomiting, unspecified; F12.10 Cannabis abuse, uncomplicated; Z79.899 Other long term (current) drug therapy
CPT/HCPCS: 93005; 99283; J7030

== ENCOUNTER 2022-01-15 10:02 | Inpatient (IN) | payer MEDICAID ==
[~2022-01-15] VITALS: Ht 170.2 cm; Wt 82.0 kg
[2022-01-15] MEDS ORDERED: ONDANSETRON HCL 4MG/2ML INJ IV STA (10:12)
[2022-01-15] MEDS ORDERED: KETOROLAC 30MG/ML VIAL IV STA (10:12)
[2022-01-15 11:25] LABS: CHLORIDE 106 mEq/L (98-107)
[2022-01-15 11:30] LABS: BASOPHILS % 0.5 % (0.0-2.0); EOSINOPHILS % 1.3 % (0.0-5.0); HEMATOCRIT. 42.5 % (42.0-52.0); LYMPHOCYTES % 15.8 % (20.0-50.0); MEAN CORPUSCULAR HEMOGLOBIN 27.3 pg (28.0-32.0); MEAN CORPUSCULAR VOLUME 83.1 fL (80.0-94.0); MEAN PLATELET VOLUME 8.7 fl (7.4-10.4); MONOCYTES % 5.7 % (2.0-8.0); NEUTROPHILS % 76.7 % (40.0-76.0); PLATELET 177 x1000/uL (130-400); RED BLOOD CELL COUNT 5.11 mill/uL (4.7-6.1); RED CELL DISTRIBUTION WIDTH 16.8 % (11.6-14.6)
[2022-01-15 11:31] LABS: PROTHROMBIN TIME 10.9 sec (9.6-11.0)
[2022-01-15] MEDS ORDERED: CLONIDINE 0.1MG TABLET PO PRN (15:15)
[2022-01-15] MEDS ORDERED: ONDANSETRON HCL 4MG/2ML INJ IV PRN ×2 (15:15→16:45)
[2022-01-15] MEDS ORDERED: SODIUM CHLORIDE 0.9% 1,000 ML IV SCH (15:15)
[2022-01-15] MEDS ORDERED: ACETAMINOPHEN 325MG TABLET PO PRN (15:15)
[2022-01-15] MEDS ORDERED: DIPHENHYDRAMINE 50MG/ML VIAL IV PRN (15:15)
[2022-01-15] MEDS ORDERED: MORPHINE SULFATE 2 MG/ML CPJ (NOT FOR IM USE) IV PRN (15:15)
[2022-01-15] MEDS ORDERED: IPRATROPIUM/ALBUTEROL 0.5-3(2.5)MG/3ML NEB HHN PRN (15:15)
[2022-01-15] MEDS ORDERED: DEXT 5%/0.9% NACL 1,000 ML IV SCH (16:45)
[2022-01-15 18:00] VITALS: BP 156/70
== END 2022-01-16 01:00 | disposition left against medical advice (07) | DRG 282 ==
LOC: ER 10:02 → 7WST 13:25 → EDBEDREQTM 13:26 → EDBEDREQ 13:26 → ENRESERV 19:02 → ER 20:06
PROVIDERS: ADMIT Internal Medicine; ATTEND Internal Medicine
DX: K85.90 Acute pancreatitis without necrosis or infection, unspecified (principal); F41.9 Anxiety disorder, unspecified; N20.0 Calculus of kidney; G89.29 Other chronic pain; R74.8 Abnormal levels of other serum enzymes
CPT/HCPCS: 36415; 74176; 76700; 80053; 80061; 85025; 93005; 93970; 99285; J1885; J2270; J2405; J7042

== ENCOUNTER 2022-01-18 12:10 | Emergency (ER) | payer MEDICAID ==
[~2022-01-18] VITALS: Ht 167.6 cm; Wt 77.0 kg
[2022-01-18 12:12] VITALS: BP 146/77
== END 2022-01-18 12:22 | disposition left against medical advice (07) ==
LOC: ER 12:19
DX: Z53.21 Procedure and treatment not carried out due to patient leaving prior to being seen by health care provider (principal)

== ENCOUNTER 2022-01-27 10:53 | Emergency (ER) | payer MEDICAID ==
[~2022-01-27] VITALS: Ht 167.6 cm; Wt 100.0 kg
[2022-01-27 10:55] VITALS: BP 122/62
[2022-01-27] MEDS ORDERED: ONDANSETRON HCL 4MG/2ML INJ IV STA (11:12)
[2022-01-27] MEDS ORDERED: MAGNESIUM/ALUMINUM HYDROXIDE/SIMETHICONE 30ML UDC PO STA (11:12)
[2022-01-27] MEDS ORDERED: PANTOPRAZOLE SODIUM 40 MG/VIAL IV STA (11:12)
[2022-01-27] MEDS ORDERED: SODIUM CHLORIDE 0.9% 1,000 ML IV ONE (11:15)
[2022-01-27 11:43] LABS: BASOPHILS % 0.5 % (0.0-2.0); HEMATOCRIT. 42.8 % (42.0-52.0); HEMOGLOBIN. 14.2 g/dL (14.0-18.0); LYMPHOCYTES % 15.3 % (20.0-50.0); MEAN CORPUSCULAR HEMOGLOBIN 27.2 pg (28.0-32.0); MEAN CORPUSCULAR VOLUME 81.9 fL (80.0-94.0); MEAN PLATELET VOLUME 8.5 fl (7.4-10.4); MONOCYTES % 5.4 % (2.0-8.0); NEUTROPHILS % 77.8 % (40.0-76.0); PLATELET 209 x1000/uL (130-400); RED BLOOD CELL COUNT 5.22 mill/uL (4.7-6.1); RED CELL DISTRIBUTION WIDTH 16.4 % (11.6-14.6)
[2022-01-27 11:50] LABS: CHLORIDE 105 mEq/L (98-107)
[2022-01-27 11:57] LABS: ETHANOL BLOOD < 10 mg/dL
[2022-01-27 12:00] LABS: INR 1.1; PROTHROMBIN TIME 11.3 sec (9.6-11.0)
[2022-01-27] MEDS ORDERED: MAG355OR21 MT (14:08)
[2022-01-27] MEDS ORDERED: PROT40 MT (14:08)
[2022-01-27] MEDS ORDERED: ONDA4TAB50 MT (14:08)
== END 2022-01-27 14:56 | disposition home or self-care (01) ==
LOC: ER 11:33
DX: F10.129 Alcohol abuse with intoxication, unspecified (principal); F12.10 Cannabis abuse, uncomplicated; Z79.899 Other long term (current) drug therapy; Z86.59 Personal history of other mental and behavioral disorders; Z98.890 Other specified postprocedural states; Y90.0 Blood alcohol level of less than 20 mg/100 ml
CPT/HCPCS: 36415; 80053; 80320; 83690; 85025; 85610; 96361; 96374; 96375; 99284; C9113; J2405; J7030; G0480

== ENCOUNTER 2022-02-07 19:45 | Emergency (ER) | payer MEDICAID ==
[~2022-02-07] VITALS: Ht 172.7 cm; Wt 100.0 kg
[~2022-02-07 19:45] MED LIST changes: +MAG355OR21 MT; +ONDA4TAB50 MT; +PROT40 MT
[2022-02-07] MEDS ORDERED: LEVETIRACETAM 1000MG PREMIX 100 ML IV ONE (20:15)
[2022-02-07] MEDS ORDERED: MIDAZOLAM HCL 2 MG/2 ML VIAL IV ONE (20:15)
[2022-02-07 20:56] LABS: BG BASE EXCESS -4.9 mmol/L (-2.0-2.0); BG CARBOXYHEMOGLOBIN 1.9 % (0.5-1.5); BG DEOXYHEMOGLOBIN 0.5 % (0.0-5.0); BG FRACTION INSPIRED OXYGEN 100; BG HCO3 ACT 19.2 mmol/L (22.0-26.0); BG OXYGEN SATURATION 99.5 % (92.0-98.5); BG OXYHEMOGLOBIN 97.6 % (94.0-97.0); BG PCO2 33.2 mmHg (35.0-45.0); BG PH 7.381 (7.350-7.450); BG PO2 234.5 mmHg (75.0-100.0); BG SAMPLE SITE RIGHT RADIAL; BG TOTAL HEMOGLOBIN 14.5 g/dL (12.0-18.0); BG VENT MODE MASK - NRB
[2022-02-07 21:04] LABS: BASOPHILS % 0.4 % (0.0-2.0); EOSINOPHILS % 1.3 % (0.0-5.0); HEMATOCRIT. 42.8 % (42.0-52.0); HEMOGLOBIN. 13.8 g/dL (14.0-18.0); LYMPHOCYTES % 13.6 % (20.0-50.0); MEAN CORPUSCULAR HEMOGLOBIN 26.9 pg (28.0-32.0); MEAN CORPUSCULAR VOLUME 83.5 fL (80.0-94.0); NEUTROPHILS % 77.7 % (40.0-76.0); PLATELET 178 x1000/uL (130-400); RED BLOOD CELL COUNT 5.12 mill/uL (4.7-6.1); RED CELL DISTRIBUTION WIDTH 16.8 % (11.6-14.6)
[2022-02-07 21:12] LABS: CHLORIDE 104 mEq/L (98-107); PROTHROMBIN TIME 11.1 sec (9.6-11.0)
[2022-02-07 21:21] LABS: ETHANOL BLOOD < 10 mg/dL
[2022-02-07 22:50] VITALS: BP 117/74
== END 2022-02-07 23:00 | disposition left against medical advice (07) ==
LOC: ER 19:45
DX: R56.9 Unspecified convulsions (principal)
CPT/HCPCS: 36415; 36600; 70450; 80053; 80320; 82375; 82805; 82962; 83605; 83690; 85025; 85610; 96365; 96375; 99284; J1953; J2250; G0480

== ENCOUNTER 2022-02-09 18:15 | Emergency (ER) | payer MEDICAID ==
[~2022-02-09] VITALS: Ht 170.2 cm; Wt 71.0 kg
[2022-02-09 18:21] VITALS: BP 122/76
[2022-02-09] MEDS ORDERED: SODIUM CHLORIDE 0.9% 1,000 ML IV ONE (18:30)
[2022-02-09] MEDS ORDERED: LEVETIRACETAM 1000MG PREMIX 100 ML IV ONE (18:30)
== END 2022-02-09 18:29 | disposition left against medical advice (07) ==
LOC: ER 18:15
DX: G40.909 Epilepsy, unspecified, not intractable, without status epilepticus (principal); Z76.5 Malingerer [conscious simulation]
CPT/HCPCS: 99281; J7030

== ENCOUNTER 2022-02-11 08:49 | Emergency (ER) | payer MEDICAID ==
[~2022-02-11] VITALS: Ht 172.7 cm; Wt 77.0 kg
[2022-02-11] MEDS ORDERED: ACETAMINOPHEN 325MG TABLET PO ONE (09:00)
[2022-02-11 09:39] VITALS: BP 148/90
[2022-02-11] MEDS ORDERED: TOPUD PO (10:31)
== END 2022-02-11 10:57 | disposition home or self-care (01) ==
LOC: ER 09:20
DX: S00.83XA Contusion of other part of head, initial encounter (principal); S40.012A Contusion of left shoulder, initial encounter; S60.222A Contusion of left hand, initial encounter; R56.9 Unspecified convulsions; Y08.89XA Assault by other specified means, initial encounter; Y93.89 Activity, other specified; Y92.9 Unspecified place or not applicable
CPT/HCPCS: 70486; 73030; 73130; 99284

== ENCOUNTER 2022-02-20 09:06 | Emergency (ER) | payer MEDICAID ==
[~2022-02-20] VITALS: Ht 170.2 cm; Wt 78.0 kg
[~2022-02-20 09:06] MED LIST changes: +TOPUD PO
[2022-02-20] MEDS ORDERED: LORAZEPAM 2MG/ML CPJ IV ONE (09:45)
[2022-02-20] MEDS ORDERED: SODIUM CHLORIDE 0.9% 1,000 ML IV ONE (09:45)
[2022-02-20] MEDS ORDERED: LORAZEPAM 2MG/ML CPJ ONE (09:48)
[2022-02-20 10:34] LABS: CHLORIDE 105 mEq/L (98-107)
[2022-02-20 10:39] LABS: BASOPHILS % 0.2 % (0.0-2.0); EOSINOPHILS % 0.5 % (0.0-5.0); HEMOGLOBIN. 14.2 g/dL (14.0-18.0); LYMPHOCYTES % 9.8 % (20.0-50.0); MEAN CORPUSCULAR HEMOGLOBIN 27.2 pg (28.0-32.0); MEAN CORPUSCULAR VOLUME 82.7 fL (80.0-94.0); MEAN PLATELET VOLUME 8.4 fl (7.4-10.4); MONOCYTES % 4.8 % (2.0-8.0); NEUTROPHILS % 84.7 % (40.0-76.0); PLATELET 218 x1000/uL (130-400); RED CELL DISTRIBUTION WIDTH 16.5 % (11.6-14.6)
[2022-02-20 10:42] LABS: ETHANOL BLOOD < 10 mg/dL
[2022-02-20 10:43] LABS: CARBAMAZEPINE < 0.5 ug/mL (4-12); VALPROIC ACID < 3.0 ug/mL (50-100)
[2022-02-20] MEDS ORDERED: LEVETIRACETAM 500MG PREMIX 100 ML IV SCH (11:15)
[2022-02-20 12:39] VITALS: BP 145/85
[2022-02-20] MEDS ORDERED: IBUPROFEN 400MG TABLET PO ONE (12:45)
== END 2022-02-20 13:16 | disposition home or self-care (01) ==
LOC: ER 09:19
DX: K85.90 Acute pancreatitis without necrosis or infection, unspecified (principal); R56.9 Unspecified convulsions; Z79.899 Other long term (current) drug therapy; Z86.59 Personal history of other mental and behavioral disorders
CPT/HCPCS: 36415; 70450; 71045; 80053; 80156; 80165; 80184; 80185; 80320; 82140; 83690; 85025; 93005; 96361; 96374; 99285; J1953; J2060; J7030; G0480

== ENCOUNTER 2022-03-11 09:38 | Inpatient (IN) | payer MEDICAID ==
[~2022-03-11] VITALS: Ht 167.6 cm; Wt 88.9 kg
[2022-03-11] MEDS ORDERED: SODIUM CHLORIDE 0.9% 1,000 ML IV ONE (09:45)
[2022-03-11] MEDS ORDERED: MORPHINE SULFATE 4 MG/ML CPJ (NOT FOR IM USE) IV STA (09:45)
[2022-03-11] MEDS ORDERED: ONDANSETRON HCL 4MG/2ML INJ IV STA (09:45)
[2022-03-11 11:19] LABS: BASOPHILS % 0.3 % (0.0-2.0); EOSINOPHILS % 0.7 % (0.0-5.0); HEMOGLOBIN. 14.1 g/dL (14.0-18.0); LYMPHOCYTES % 13.8 % (20.0-50.0); MEAN CORPUSCULAR VOLUME 83.5 fL (80.0-94.0); MEAN PLATELET VOLUME 8.3 fl (7.4-10.4); MONOCYTES % 5.4 % (2.0-8.0); NEUTROPHILS % 79.8 % (40.0-76.0); PLATELET 185 x1000/uL (130-400); RED BLOOD CELL COUNT 5.03 mill/uL (4.7-6.1); RED CELL DISTRIBUTION WIDTH 16.3 % (11.6-14.6)
[2022-03-11 11:27] LABS: CHLORIDE 103 mEq/L (98-107)
[2022-03-11] MEDS ORDERED: IPRATROPIUM/ALBUTEROL 0.5-3(2.5)MG/3ML NEB HHN PRN (16:00)
[2022-03-11] MEDS ORDERED: CLONIDINE 0.1MG TABLET PO PRN (16:00)
[2022-03-11] MEDS ORDERED: ACETAMINOPHEN 325MG TABLET PO PRN (16:00)
[2022-03-11] MEDS ORDERED: DIPHENHYDRAMINE 50MG/ML VIAL IV PRN (16:00)
[2022-03-11] MEDS: SODIUM CHLORIDE 0.9% 1,000 ML IV SCH ×3 (16:38→19:47)
[2022-03-11] MEDS: MORPHINE SULFATE 2 MG/ML CPJ (NOT FOR IM USE) IV PRN ×2 (16:38→21:17)
[2022-03-11] MEDS ORDERED: NALOXONE HCL 0.4MG/ML VIAL IV PRN (16:45)
[2022-03-11] MEDS: LORAZEPAM 2MG/ML CPJ IV PRN (16:49)
[2022-03-11] MEDS: FLUOXETINE HCL 10 MG CAPSULE PO SCH (17:54)
[2022-03-11] MEDS: ONDANSETRON HCL 4MG/2ML INJ IV PRN ×2 (18:17→21:16)
[2022-03-11 18:56] VITALS: BP 160/87
[2022-03-11 20:20] VITALS: BP 120/79
[2022-03-11 20:32] VITALS: BP 120/79
[2022-03-11] MEDS: LEVETIRACETAM 500MG TABLET PO SCH (21:06)
[2022-03-12] VITALS: BP 127/80
[2022-03-12 04:00] VITALS: BP 148/86
[2022-03-12] MEDS: ONDANSETRON HCL 4MG/2ML INJ IV PRN ×3 (04:01→16:01)
[2022-03-12] MEDS: MORPHINE SULFATE 2 MG/ML CPJ (NOT FOR IM USE) IV PRN ×3 (04:02→15:56)
[2022-03-12] MEDS: SODIUM CHLORIDE 0.9% 1,000 ML IV SCH (04:04)
[2022-03-12 07:35] LABS: BASOPHILS % 0.3 % (0.0-2.0); EOSINOPHILS % 1.4 % (0.0-5.0); HEMATOCRIT. 39.8 % (42.0-52.0); HEMOGLOBIN. 13.6 g/dL (14.0-18.0); LYMPHOCYTES % 25.9 % (20.0-50.0); MEAN CORPUSCULAR HEMOGLOBIN 28.5 pg (28.0-32.0); MEAN CORPUSCULAR VOLUME 83.5 fL (80.0-94.0); MEAN PLATELET VOLUME 8.5 fl (7.4-10.4); MONOCYTES % 8.1 % (2.0-8.0); NEUTROPHILS % 64.3 % (40.0-76.0); PLATELET 184 x1000/uL (130-400); RED BLOOD CELL COUNT 4.77 mill/uL (4.7-6.1)
[2022-03-12 08:00] VITALS: BP 129/73
[2022-03-12] MEDS: FLUOXETINE HCL 10 MG CAPSULE PO SCH ×2 (08:58→09:00)
[2022-03-12] MEDS: LEVETIRACETAM 500MG TABLET PO SCH ×2 (08:58→09:00)
[2022-03-12 09:13] LABS: CHLORIDE 104 mEq/L (98-107)
[2022-03-12] MEDS: LORAZEPAM 2MG/ML CPJ IV PRN ×2 (09:19→16:17)
[2022-03-12] MEDS ORDERED: INFLUENZA VACCINE 05/PF 0.5 ML SYRINGE IM ONE (10:00)
[2022-03-12 12:00] VITALS: BP 106/61
[2022-03-12 16:00] VITALS: BP 140/93
== END 2022-03-12 18:23 | disposition left against medical advice (07) | DRG 282 ==
LOC: ER 09:38 → 8WST 12:34 → EDBEDREQTM 12:39 → EDBEDREQ 12:39 → ENRESERV 16:15
PROVIDERS: ADMIT Internal Medicine; ATTEND Internal Medicine
DX: K86.1 Other chronic pancreatitis (principal); F32.A Depression, unspecified; G40.909 Epilepsy, unspecified, not intractable, without status epilepticus; Z53.29 Procedure and treatment not carried out because of patient's decision for other reasons; Z82.49 Family history of ischemic heart disease and other diseases of the circulatory system
CPT/HCPCS: 36415; 74176; 80053; 85025; 93970; 99285; J2060; J2270; J2405; J7030

== ENCOUNTER 2022-03-15 04:20 | Emergency (ER) | payer MEDICAID ==
[~2022-03-15] VITALS: Ht 172.7 cm; Wt 82.0 kg
[2022-03-15] MEDS ORDERED: ONDANSETRON HCL 4MG/2ML INJ IV STA (05:06)
[2022-03-15] MEDS ORDERED: MORPHINE SULFATE 4 MG/ML CPJ (NOT FOR IM USE) IV STA (05:06)
[2022-03-15] MEDS ORDERED: SODIUM CHLORIDE 0.9% 1,000 ML IV ONE (05:15)
[2022-03-15 05:28] LABS: BASOPHILS % 0.4 % (0.0-2.0); HEMATOCRIT. 42.2 % (42.0-52.0); HEMOGLOBIN. 13.9 g/dL (14.0-18.0); LYMPHOCYTES % 13.9 % (20.0-50.0); MEAN CORPUSCULAR HEMOGLOBIN 27.6 pg (28.0-32.0); MEAN CORPUSCULAR VOLUME 83.7 fL (80.0-94.0); MEAN PLATELET VOLUME 7.8 fl (7.4-10.4); MONOCYTES % 5.5 % (2.0-8.0); NEUTROPHILS % 79.2 % (40.0-76.0); PLATELET 202 x1000/uL (130-400); RED BLOOD CELL COUNT 5.05 mill/uL (4.7-6.1); RED CELL DISTRIBUTION WIDTH 15.7 % (11.6-14.6)
[2022-03-15 05:35] LABS: CHLORIDE 103 mEq/L (98-107)
[2022-03-15 05:42] VITALS: BP 165/80
== END 2022-03-15 07:47 | disposition left against medical advice (07) ==
LOC: ER 04:37 → EDBEDREQTM 06:26 → EDBEDREQ 06:26 → ER 07:47 → CANBEDREQ 08:29
DX: R10.84 Generalized abdominal pain (principal); R11.0 Nausea; F32.9 Major depressive disorder, single episode, unspecified; Z79.899 Other long term (current) drug therapy
CPT/HCPCS: 36415; 80053; 83690; 85025; 93005; 99284; J7030

== ENCOUNTER 2022-03-31 07:23 | Emergency (ER) | payer MEDICAID ==
[~2022-03-31] VITALS: Ht 167.6 cm; Wt 77.0 kg
[2022-03-31] MEDS ORDERED: KETOROLAC 30MG/ML VIAL IV STA (07:35)
[2022-03-31] MEDS ORDERED: ONDANSETRON HCL 4MG/2ML INJ IV STA (07:35)
[2022-03-31] MEDS ORDERED: SODIUM CHLORIDE 0.9% 1,000 ML IV ONE (07:45)
[2022-03-31] MEDS ORDERED: LEVETIRACETAM 1000MG PREMIX 100 ML IV ONE (07:45)
[2022-03-31 08:36] LABS: CLARITY URINE CLEAR (CLEAR); COLOR URINE YELLOW (YELLOW); KETONES URINE NEGATIVE (NEGATIVE); LEUKOCYTE ESTERASE URINE NEGATIVE (NEGATIVE); NITRITE URINE NEGATIVE (NEGATIVE); OCCULT BLOOD URINE 2+ (NEGATIVE); PH URINE 6.5 (4.5-8.0); PROTEIN URINE 2+ (NEGATIVE); SPECIFIC GRAVITY URINE 1.015 (1.005-1.030); UROBILINOGEN URINE 0.2 E.U./dL (0.2-1.0)
[2022-03-31 08:37] LABS: BASOPHILS % 0.2 % (0.0-2.0); EOSINOPHILS % 0.3 % (0.0-5.0); HEMATOCRIT. 42.8 % (42.0-52.0); HEMOGLOBIN. 14.1 g/dL (14.0-18.0); LYMPHOCYTES % 18.9 % (20.0-50.0); MEAN CORPUSCULAR HEMOGLOBIN 27.8 pg (28.0-32.0); MEAN CORPUSCULAR VOLUME 84.6 fL (80.0-94.0); MEAN PLATELET VOLUME 8.1 fl (7.4-10.4); MONOCYTES % 8.2 % (2.0-8.0); NEUTROPHILS % 72.4 % (40.0-76.0); PLATELET 266 x1000/uL (130-400); RED BLOOD CELL COUNT 5.05 mill/uL (4.7-6.1); RED CELL DISTRIBUTION WIDTH 15.4 % (11.6-14.6)
[2022-03-31 08:52] LABS: CHLORIDE 95 mEq/L (98-107)
[2022-03-31 09:03] LABS: ETHANOL BLOOD < 10 mg/dL
[2022-03-31 09:12] LABS: *AMPHETAMINES SCREEN URINE NEGATIVE (NEGATIVE); *BARBITURATES SCREEN URINE NEGATIVE (NEGATIVE); *BENZODIAZEPINES SCREEN URINE NEGATIVE (NEGATIVE); *COCAINE SCREEN URINE NEGATIVE (NEGATIVE); CANNABINOID URINE SCREEN PRESUMTIVE POSITIVE (NEGATIVE); METHADONE URINE SCREEN NEGATIVE (NEGATIVE); OPIATES URINE SCREEN NEGATIVE (NEGATIVE); PHENCYCLIDINE URINE SCREEN NEGATIVE (NEGATIVE)
[2022-03-31 10:23] VITALS: BP 131/89
== END 2022-03-31 10:24 | disposition home or self-care (01) ==
LOC: ER 07:23
DX: R10.13 Epigastric pain (principal); Z79.899 Other long term (current) drug therapy; Z98.890 Other specified postprocedural states; Z86.59 Personal history of other mental and behavioral disorders
CPT/HCPCS: 36415; 80053; 80305; 80320; 81003; 82962; 83690; 85025; 93005; 96374; 96375; 99284; J1885; J1953; J2405; J7030; G0480

== ENCOUNTER 2022-05-31 22:51 | Emergency (ER) | payer MEDICAID ==
[~2022-05-31] VITALS: Ht 167.6 cm; Wt 72.0 kg
[2022-06-01] MEDS ORDERED: OLANZAPINE 10 MG/VIAL IM ONE (01:30)
[2022-06-01] MEDS ORDERED: HALOPERIDOL LACTATE 5MG/ML VIAL IM ONE (01:45)
[2022-06-01] MEDS ORDERED: LORAZEPAM 2MG/ML CPJ IM ONE (01:45)
[2022-06-01] MEDS ORDERED: ONDANSETRON 4MG ODT PO ONE (02:00)
[2022-06-01 02:34] LABS: CLARITY URINE CLEAR (CLEAR); COLOR URINE YELLOW (YELLOW); KETONES URINE TRACE (NEGATIVE); LEUKOCYTE ESTERASE URINE NEGATIVE (NEGATIVE); NITRITE URINE NEGATIVE (NEGATIVE); OCCULT BLOOD URINE 2+ (NEGATIVE); PH URINE 5.5 (4.5-8.0); PROTEIN URINE 3+ (NEGATIVE); SPECIFIC GRAVITY URINE 1.034 (1.005-1.030); UROBILINOGEN URINE 0.2 E.U./dL (0.2-1.0)
[2022-06-01 02:34] LABS: BASOPHILS % 0.4 % (0.0-2.0); EOSINOPHILS % 0.7 % (0.0-5.0); HEMATOCRIT. 41.6 % (42.0-52.0); HEMOGLOBIN. 13.6 g/dL (14.0-18.0); MEAN CORPUSCULAR HEMOGLOBIN 27.2 pg (28.0-32.0); MEAN CORPUSCULAR VOLUME 83.3 fL (80.0-94.0); MEAN PLATELET VOLUME 8.5 fl (7.4-10.4); NEUTROPHILS % 65.9 % (40.0-76.0); PLATELET 227 x1000/uL (130-400); RED BLOOD CELL COUNT 4.99 mill/uL (4.7-6.1); RED CELL DISTRIBUTION WIDTH 15.9 % (11.6-14.6)
[2022-06-01 02:47] LABS: CHLORIDE 106 mEq/L (98-107)
[2022-06-01 02:56] LABS: ETHANOL BLOOD < 10 mg/dL
[2022-06-01 03:02] LABS: *AMPHETAMINES SCREEN URINE NEGATIVE (NEGATIVE); *BARBITURATES SCREEN URINE NEGATIVE (NEGATIVE); *BENZODIAZEPINES SCREEN URINE NEGATIVE (NEGATIVE); *COCAINE SCREEN URINE NEGATIVE (NEGATIVE); CANNABINOID URINE SCREEN PRESUMTIVE POSITIVE (NEGATIVE); METHADONE URINE SCREEN NEGATIVE (NEGATIVE); OPIATES URINE SCREEN NEGATIVE (NEGATIVE); PHENCYCLIDINE URINE SCREEN NEGATIVE (NEGATIVE)
[2022-06-02] MEDS ORDERED: ACETAMINOPHEN 325MG TABLET PO ONE
[2022-06-02] MEDS ORDERED: HALOPERIDOL LACTATE 5MG/ML VIAL IM ONE
[2022-06-02] MEDS ORDERED: DIPHENHYDRAMINE 50MG/ML VIAL IM ONE
[2022-06-02] MEDS ORDERED: DIPHENHYDRAMINE 50MG CAPSULE PO ONE
[2022-06-02] MEDS ORDERED: LORAZEPAM 2MG/ML CPJ IM ONE
[2022-06-02] MEDS ORDERED: OLANZAPINE 5MG TABLET ODT PO SCH (09:00)
[2022-06-02] MEDS ORDERED: MORPHINE SULFATE 2 MG/ML CPJ (NOT FOR IM USE) IV ONE (10:15)
[2022-06-02 16:58] VITALS: BP 128/85
== END 2022-06-02 17:37 ==
LOC: ER 22:51
DX: R45.851 Suicidal ideations (principal); Z79.899 Other long term (current) drug therapy; Z20.822 Contact with and (suspected) exposure to COVID-19
CPT/HCPCS: 36415; 80053; 80305; 80307; 80320; 80329; 81001; 85025; 96372; 99285; C9803; J2270; J3490; Q0163; U0003; G0480

== ENCOUNTER 2022-06-30 10:51 | Inpatient (IN) | payer MEDICAID ==
[~2022-06-30] VITALS: Ht 175 cm; Wt 89.4 kg
[2022-06-30] MEDS ORDERED: ONDANSETRON HCL 4MG/2ML INJ IV STA (11:07)
[2022-06-30] MEDS ORDERED: MORPHINE SULFATE 4 MG/ML CPJ (NOT FOR IM USE) IV STA (11:07)
[2022-06-30] MEDS ORDERED: SODIUM CHLORIDE 0.9% 1,000 ML IV ONE (11:15)
[2022-06-30 11:42] LABS: BASOPHILS % 0.4 % (0.0-2.0); EOSINOPHILS % 0.9 % (0.0-5.0); HEMATOCRIT. 43.5 % (42.0-52.0); HEMOGLOBIN. 14.1 g/dL (14.0-18.0); LYMPHOCYTES % 15.3 % (20.0-50.0); MEAN CORPUSCULAR HEMOGLOBIN 27.2 pg (28.0-32.0); MEAN CORPUSCULAR VOLUME 83.8 fL (80.0-94.0); MEAN PLATELET VOLUME 8.4 fl (7.4-10.4); MONOCYTES % 5.1 % (2.0-8.0); NEUTROPHILS % 78.3 % (40.0-76.0); PLATELET 243 x1000/uL (130-400); RED BLOOD CELL COUNT 5.19 mill/uL (4.7-6.1); RED CELL DISTRIBUTION WIDTH 17.3 % (11.6-14.6)
[2022-06-30 11:49] LABS: CHLORIDE 109 mEq/L (98-107)
[2022-06-30] MEDS ORDERED: METOCLOPRAMIDE HCL 10MG/2ML VIAL IV ONE (13:00)
[2022-06-30] MEDS ORDERED: KETOROLAC 15MG/ML VIAL IM ONE (17:00)
[2022-06-30] MEDS ORDERED: HYDROCODONE/ACETAMINOPHEN 5/325MG TABLET PO PRN (23:30)
[2022-06-30] MEDS ORDERED: NALOXONE HCL 0.4MG/ML VIAL IV PRN (23:45)
[2022-07-01] VITALS (7 sets, daily range): BP systolic 128–185; BP diastolic 48–126
[2022-07-01] MEDS: ONDANSETRON HCL 4MG/2ML INJ IV PRN ×2 (05:21→15:20)
[2022-07-01] MEDS ORDERED: ACETAMINOPHEN 325MG TABLET PO PRN (11:15)
[2022-07-01] MEDS ORDERED: IPRATROPIUM/ALBUTEROL 0.5-3(2.5)MG/3ML NEB HHN PRN (11:15)
[2022-07-01] MEDS ORDERED: ALBUTEROL (0.083%) 2.5MG/3ML NEB HHN PRN (11:15)
[2022-07-01] MEDS ORDERED: IPRATROPIUM BROMIDE (0.02%) 0.5MG/2.5ML NEB HHN PRN (11:15)
[2022-07-01] MEDS ORDERED: DIPHENHYDRAMINE 50MG/ML VIAL IV PRN (11:15)
[2022-07-01] MEDS ORDERED: CLONIDINE 0.1MG TABLET PO PRN (11:15)
[2022-07-01] MEDS ORDERED: LORAZEPAM 2MG/ML CPJ IV PRN (11:15)
[2022-07-01] MEDS ORDERED: LEVETIRACETAM 500 MG in SODIUM CHLORIDE 0.9% 100 ML IV SCH (12:30)
[2022-07-01] MEDS ORDERED: LEVETIRACETAM 500MG PREMIX 100 ML IV SCH (13:30)
[2022-07-01 17:52] LABS: BG BASE EXCESS 1.8 mmol/L (-2.0-2.0); BG CARBOXYHEMOGLOBIN 1.2 % (0.5-1.5); BG DEOXYHEMOGLOBIN 0.9 % (0.0-5.0); BG FRACTION INSPIRED OXYGEN 28; BG HCO3 ACT 25.9 mmol/L (22.0-26.0); BG METHEMOGLOBIN 0.1 % (0.0-1.5); BG OXYGEN SATURATION 99.1 % (92.0-98.5); BG OXYHEMOGLOBIN 97.8 % (94.0-97.0); BG PCO2 38.6 mmHg (35.0-45.0); BG PH 7.444 (7.350-7.450); BG PO2 147.6 mmHg (75.0-100.0); BG SAMPLE SITE LEFT BRACHIAL; BG VENT MODE NASAL CANNULA
== END 2022-07-01 19:00 | disposition left against medical advice (07) | DRG 254 ==
LOC: ER 10:51 → MICUSO 19:18 → 6EST 07-01 01:00 → 8WST 07-01 15:51
PROVIDERS: ADMIT Internal Medicine; ATTEND Internal Medicine
DX: K31.84 Gastroparesis (principal); R56.9 Unspecified convulsions; D72.829 Elevated white blood cell count, unspecified; K21.9 Gastro-esophageal reflux disease without esophagitis; K86.1 Other chronic pancreatitis; Z20.822 Contact with and (suspected) exposure to COVID-19; Z53.29 Procedure and treatment not carried out because of patient's decision for other reasons
CPT/HCPCS: 36415; 36600; 74177; 80053; 82375; 82805; 82962; 85025; 87426; 93005; 93970; 99285; J1885; J1953; J2060; J2270; J2405; J2765; J7030; J7050

== ENCOUNTER 2022-08-04 11:43 | Emergency (ER) | payer MEDICAID ==
[~2022-08-04] VITALS: Ht 175.3 cm; Wt 100.0 kg
[2022-08-04] MEDS ORDERED: KETOROLAC 30MG/ML VIAL IV STA (12:50)
[2022-08-04] MEDS ORDERED: ONDANSETRON HCL 4MG/2ML INJ IV STA (12:50)
[2022-08-04] MEDS ORDERED: SODIUM CHLORIDE 0.9% 1,000 ML IV ONE (13:00)
[2022-08-04 13:45] LABS: BASOPHILS % 0.2 % (0.0-2.0); EOSINOPHILS % 0.4 % (0.0-5.0); HEMATOCRIT. 41.7 % (42.0-52.0); HEMOGLOBIN. 13.5 g/dL (14.0-18.0); LYMPHOCYTES % 9.8 % (20.0-50.0); MEAN CORPUSCULAR HEMOGLOBIN 26.9 pg (28.0-32.0); MEAN CORPUSCULAR VOLUME 83.1 fL (80.0-94.0); MONOCYTES % 4.4 % (2.0-8.0); NEUTROPHILS % 85.2 % (40.0-76.0); PLATELET 209 x1000/uL (130-400); RED BLOOD CELL COUNT 5.02 mill/uL (4.7-6.1); RED CELL DISTRIBUTION WIDTH 16.5 % (11.6-14.6)
[2022-08-04 13:50] LABS: CHLORIDE 105 mEq/L (98-107)
[2022-08-04 15:45] VITALS: BP 138/79
== END 2022-08-04 15:47 | disposition home or self-care (01) ==
LOC: ER 11:45
DX: R05.9 Cough, unspecified (principal); F17.200 Nicotine dependence, unspecified, uncomplicated; Z79.899 Other long term (current) drug therapy
CPT/HCPCS: 36415; 71045; 80053; 83605; 83690; 85025; 96361; 96374; 96375; 99284; J1885; J2405; J7030; Z7610

== ENCOUNTER 2022-08-17 23:30 | Emergency (ER) | payer MEDICAID ==
[~2022-08-17] VITALS: Ht 172.7 cm; Wt 85.0 kg
[2022-08-17 23:32] VITALS: BP 126/79
== END 2022-08-17 23:56 | disposition left against medical advice (07) ==
LOC: ER 23:39
DX: Z53.21 Procedure and treatment not carried out due to patient leaving prior to being seen by health care provider (principal)
CPT/HCPCS: 99281

== ENCOUNTER 2022-08-20 11:40 | Emergency (ER) | payer MEDICAID ==
[~2022-08-20] VITALS: Ht 172.7 cm; Wt 91.0 kg
[2022-08-20] MEDS ORDERED: LEVETIRACETAM 500MG PREMIX 100 ML IV ONE (13:00)
[2022-08-20 13:29] LABS: BASOPHILS % 0.6 % (0.0-2.0); EOSINOPHILS % 2.3 % (0.0-5.0); HEMATOCRIT. 39.1 % (42.0-52.0); HEMOGLOBIN. 12.7 g/dL (14.0-18.0); LYMPHOCYTES % 21.6 % (20.0-50.0); MEAN CORPUSCULAR HEMOGLOBIN 27.5 pg (28.0-32.0); MEAN CORPUSCULAR VOLUME 84.3 fL (80.0-94.0); MEAN PLATELET VOLUME 8.4 fl (7.4-10.4); MONOCYTES % 8.2 % (2.0-8.0); NEUTROPHILS % 67.3 % (40.0-76.0); PLATELET 188 x1000/uL (130-400); RED BLOOD CELL COUNT 4.63 mill/uL (4.7-6.1); RED CELL DISTRIBUTION WIDTH 17.4 % (11.6-14.6)
[2022-08-20 13:46] LABS: ETHANOL BLOOD < 10 mg/dL
[2022-08-20 14:24] LABS: CHLORIDE 109 mEq/L (98-107)
[2022-08-20 16:45] VITALS: BP 140/82
== END 2022-08-20 17:09 | disposition home or self-care (01) ==
LOC: ER 11:40
DX: R56.9 Unspecified convulsions (principal); Z87.19 Personal history of other diseases of the digestive system
CPT/HCPCS: 36415; 80053; 80320; 85025; 96365; 99284; J1953; Z7610; G0480

== ENCOUNTER 2022-08-21 16:33 | Emergency (ER) | payer MEDICAID ==
[~2022-08-21] VITALS: Ht 175.3 cm; Wt 109.0 kg
[2022-08-21] MEDS ORDERED: MAGNESIUM/ALUMINUM HYDROXIDE/SIMETHICONE 30ML UDC PO STA (16:57)
[2022-08-21] MEDS ORDERED: FAMOTIDINE 20MG/2ML VIAL IV STA (16:57)
[2022-08-21] MEDS ORDERED: MORPHINE SULFATE 4 MG/ML CPJ (NOT FOR IM USE) IV STA (16:57)
[2022-08-21] MEDS ORDERED: SODIUM CHLORIDE 0.9% 1,000 ML IV ONE (17:00)
[2022-08-21 17:36] LABS: BASOPHILS % 0.3 % (0.0-2.0); EOSINOPHILS % 1.4 % (0.0-5.0); HEMATOCRIT. 39.5 % (42.0-52.0); HEMOGLOBIN. 12.9 g/dL (14.0-18.0); LYMPHOCYTES % 14.1 % (20.0-50.0); MEAN CORPUSCULAR HEMOGLOBIN 27.1 pg (28.0-32.0); MEAN PLATELET VOLUME 8.2 fl (7.4-10.4); MONOCYTES % 7.1 % (2.0-8.0); NEUTROPHILS % 77.1 % (40.0-76.0); PLATELET 202 x1000/uL (130-400); RED BLOOD CELL COUNT 4.76 mill/uL (4.7-6.1); RED CELL DISTRIBUTION WIDTH 17.3 % (11.6-14.6)
[2022-08-21 17:42] LABS: CHLORIDE 106 mEq/L (98-107)
[2022-08-21 17:46] LABS: PROTHROMBIN TIME 10.8 sec (9.6-11.0)
[2022-08-21] MEDS ORDERED: LEVETIRACETAM 500MG PREMIX 100 ML IV ONE (18:00)
[2022-08-21] MEDS ORDERED: MAGNESIUM/ALUMINUM HYDROXIDE/SIMETHICONE 30ML UDC PO NR (18:15)
[2022-08-21] MEDS ORDERED: MORPHINE SULFATE 4 MG/ML CPJ (NOT FOR IM USE) IV NR (18:15)
[2022-08-21] MEDS ORDERED: FAMOTIDINE 20MG/2ML VIAL IV NR (18:15)
[2022-08-22 04:49] LABS: CLARITY URINE CLEAR (CLEAR); COLOR URINE YELLOW (YELLOW); KETONES URINE NEGATIVE (NEGATIVE); LEUKOCYTE ESTERASE URINE NEGATIVE (NEGATIVE); NITRITE URINE NEGATIVE (NEGATIVE); OCCULT BLOOD URINE TRACE (NEGATIVE); PH URINE 6.5 (4.5-8.0); PROTEIN URINE 2+ (NEGATIVE); SPECIFIC GRAVITY URINE 1.014 (1.005-1.030); UROBILINOGEN URINE 0.2 E.U./dL (0.2-1.0)
[2022-08-22 06:00] VITALS: BP 146/90
== END 2022-08-22 06:48 | disposition home or self-care (01) ==
LOC: ER 16:33
DX: K85.90 Acute pancreatitis without necrosis or infection, unspecified (principal); R10.9 Unspecified abdominal pain; R56.9 Unspecified convulsions; Z87.19 Personal history of other diseases of the digestive system
CPT/HCPCS: 36415; 80053; 81003; 83690; 84484; 85025; 85610; 93005; 96365; 96375; 99285; J1953; J2270; J3490; J7030; Z7610

== ENCOUNTER 2022-08-22 07:27 | Emergency (ER) | payer MEDICAID ==
[~2022-08-22] VITALS: Ht 172.7 cm; Wt 85.0 kg
[2022-08-22 09:19] VITALS: BP 124/66
== END 2022-08-22 09:48 | disposition home or self-care (01) ==
LOC: ER 07:31
DX: R56.9 Unspecified convulsions (principal); Z87.19 Personal history of other diseases of the digestive system
CPT/HCPCS: 99283; Z7610

== ENCOUNTER 2022-08-23 23:47 | Emergency (ER) | payer MEDICAID ==
[~2022-08-23] VITALS: Ht 157.5 cm; Wt 73.0 kg
[2022-08-24] VITALS: BP 170/99
[2022-08-24] MEDS ORDERED: FAMOTIDINE 20MG/2ML VIAL IV STA (00:01)
[2022-08-24] MEDS ORDERED: ONDANSETRON HCL 4MG/2ML INJ IV STA (00:01)
[2022-08-24] MEDS ORDERED: SODIUM CHLORIDE 0.9% 1,000 ML IV ONE (00:15)
[2022-08-24 00:26] LABS: BASOPHILS % 0.5 % (0.0-2.0); EOSINOPHILS % 1.9 % (0.0-5.0); HEMATOCRIT. 39.6 % (42.0-52.0); HEMOGLOBIN. 13.3 g/dL (14.0-18.0); LYMPHOCYTES % 26.9 % (20.0-50.0); MEAN CORPUSCULAR HEMOGLOBIN 28.1 pg (28.0-32.0); MEAN CORPUSCULAR VOLUME 83.6 fL (80.0-94.0); MONOCYTES % 8.4 % (2.0-8.0); NEUTROPHILS % 62.3 % (40.0-76.0); PLATELET 215 x1000/uL (130-400); RED BLOOD CELL COUNT 4.74 mill/uL (4.7-6.1)
[2022-08-24] MEDS: HALOPERIDOL LACTATE 5MG/ML VIAL IM ONE ×2 (00:43→00:46)
[2022-08-24 00:49] LABS: CHLORIDE 105 mEq/L (98-107)
[2022-08-24] MEDS ORDERED: ONDA4TAB50 MT (05:59)
== END 2022-08-24 06:41 | disposition home or self-care (01) ==
LOC: ER 23:47
DX: K85.90 Acute pancreatitis without necrosis or infection, unspecified (principal); E87.20 Acidosis, unspecified; G40.909 Epilepsy, unspecified, not intractable, without status epilepticus; F15.10 Other stimulant abuse, uncomplicated
CPT/HCPCS: 36415; 80053; 83605; 83690; 85025; 96361; 96374; 96375; 99284; J1630; J2405; J3490; J7030; Z7610

== ENCOUNTER 2022-08-28 07:02 | Emergency (ER) | payer MEDICAID ==
[~2022-08-28] VITALS: Ht 175.3 cm; Wt 82.0 kg
[2022-08-28] MEDS ORDERED: ONDANSETRON HCL 4MG/2ML INJ IV STA (07:15)
[2022-08-28] MEDS ORDERED: PANTOPRAZOLE SODIUM 40 MG/VIAL IV STA (07:15)
[2022-08-28] MEDS ORDERED: MAGNESIUM/ALUMINUM HYDROXIDE/SIMETHICONE 30ML UDC PO STA (07:15)
[2022-08-28] MEDS ORDERED: SODIUM CHLORIDE 0.9% 1,000 ML IV ONE (07:15)
[2022-08-28 07:22] VITALS: BP 146/84
[2022-08-28 08:49] LABS: BASOPHILS % 0.4 % (0.0-2.0); EOSINOPHILS % 0.6 % (0.0-5.0); HEMATOCRIT. 40.6 % (42.0-52.0); HEMOGLOBIN. 13.4 g/dL (14.0-18.0); LYMPHOCYTES % 13.8 % (20.0-50.0); MEAN CORPUSCULAR HEMOGLOBIN 27.5 pg (28.0-32.0); MEAN CORPUSCULAR VOLUME 83.4 fL (80.0-94.0); MEAN PLATELET VOLUME 8.1 fl (7.4-10.4); MONOCYTES % 5.3 % (2.0-8.0); NEUTROPHILS % 79.9 % (40.0-76.0); PLATELET 219 x1000/uL (130-400); RED BLOOD CELL COUNT 4.87 mill/uL (4.7-6.1); RED CELL DISTRIBUTION WIDTH 16.9 % (11.6-14.6)
[2022-08-28 08:54] LABS: CHLORIDE 103 mEq/L (98-107)
[2022-08-28 09:02] LABS: ETHANOL BLOOD < 10 mg/dL
[2022-08-28] MEDS ORDERED: ONDA4TAB50 MT (10:28)
[2022-08-28] MEDS ORDERED: MAG-55 MT (10:28)
[2022-08-28] MEDS ORDERED: PROT40 MT (10:28)
[2022-08-28] MEDS ORDERED: MAGNESIUM/ALUMINUM HYDROXIDE/SIMETHICONE 30ML UDC PO NR (11:00)
[2022-08-28] MEDS ORDERED: ONDANSETRON HCL 4MG/2ML INJ IV NR (11:00)
[2022-08-28] MEDS ORDERED: PANTOPRAZOLE SODIUM 40 MG/VIAL IV NR (11:00)
== END 2022-08-28 12:11 | disposition home or self-care (01) ==
LOC: ER 07:02
DX: K29.70 Gastritis, unspecified, without bleeding (principal); Z79.899 Other long term (current) drug therapy; Z86.59 Personal history of other mental and behavioral disorders
CPT/HCPCS: 36415; 80053; 80320; 83690; 85025; 99283; J7030; Z7610; G0480

== ENCOUNTER 2022-08-29 11:47 | Inpatient (IN) | payer MEDICAID ==
[~2022-08-29] VITALS: Ht 167.6 cm; Wt 91.2 kg
[2022-08-29] MEDS ORDERED: MORPHINE SULFATE 4 MG/ML CPJ (NOT FOR IM USE) IV STA (12:33)
[2022-08-29] MEDS ORDERED: ONDANSETRON HCL 4MG/2ML INJ IV STA (12:33)
[2022-08-29] MEDS ORDERED: FAMOTIDINE 20MG/2ML VIAL IV ONE (12:45)
[2022-08-29] MEDS ORDERED: SODIUM CHLORIDE 0.9% 1,000 ML IV ONE (12:45)
[2022-08-29 13:36] LABS: BASOPHILS % 0.4 % (0.0-2.0); EOSINOPHILS % 1.2 % (0.0-5.0); HEMOGLOBIN. 12.8 g/dL (14.0-18.0); LYMPHOCYTES % 14.2 % (20.0-50.0); MEAN CORPUSCULAR HEMOGLOBIN 27.5 pg (28.0-32.0); MEAN CORPUSCULAR VOLUME 83.7 fL (80.0-94.0); MEAN PLATELET VOLUME 8.6 fl (7.4-10.4); MONOCYTES % 6.7 % (2.0-8.0); NEUTROPHILS % 77.5 % (40.0-76.0); PLATELET 176 x1000/uL (130-400); RED BLOOD CELL COUNT 4.66 mill/uL (4.7-6.1); RED CELL DISTRIBUTION WIDTH 16.7 % (11.6-14.6)
[2022-08-29 13:41] LABS: CHLORIDE 106 mEq/L (98-107)
[2022-08-29] MEDS ORDERED: NALOXONE HCL 0.4MG/ML VIAL IV PRN (20:45)
[2022-08-29] MEDS ORDERED: HYDROCODONE/ACETAMINOPHEN 10/325MG TABLET PO PRN (20:45)
[2022-08-29] MEDS ORDERED: ONDANSETRON HCL 4MG/2ML INJ IV PRN (20:45)
[2022-08-29] MEDS: LORAZEPAM 2MG/ML CPJ IV PRN (21:02)
[2022-08-29] MEDS: MORPHINE SULFATE 2 MG/ML CPJ (NOT FOR IM USE) IV PRN (21:02)
[2022-08-29] MEDS: LEVETIRACETAM 500MG TABLET PO SCH (21:14)
[2022-08-29 23:35] VITALS: BP 147/92
[2022-08-30] VITALS: BP 142/80
[2022-08-30] MEDS ORDERED: PNEUMOCOCCAL 23-VAL P-SAC VAC 0.5 ML IM ONE (00:15)
[2022-08-30] MEDS ORDERED: INFLUENZA VACCINE 05/PF 0.5 ML SYRINGE IM ONE (00:15)
[2022-08-30] MEDS: MORPHINE SULFATE 2 MG/ML CPJ (NOT FOR IM USE) IV PRN ×2 (03:41→08:52)
[2022-08-30] MEDS: LORAZEPAM 2MG/ML CPJ IV PRN ×2 (03:58→08:51)
[2022-08-30 08:00] VITALS: BP 149/93
[2022-08-30] MEDS: LEVETIRACETAM 500MG TABLET PO SCH ×2 (08:52→20:04)
[2022-08-30] MEDS ORDERED: PANTOPRAZOLE SODIUM 40 MG/VIAL IV SCH (09:00)
[2022-08-30] MEDS ORDERED: AMLODIPINE 10MG TABLET PO SCH (09:00)
[2022-08-30 12:00] VITALS: BP 148/78
[2022-08-30] MEDS: KETOROLAC 30MG/ML VIAL IV PRN ×2 (13:56→20:04)
[2022-08-30 16:00] VITALS: BP 133/81
[2022-08-30 20:00] VITALS: BP 120/75
[2022-08-30 20:04] VITALS: BP 132/86
== END 2022-08-30 19:45 | disposition home or self-care (01) | DRG 282 ==
LOC: ER 11:47 → ENRESERV 19:21 → 6EST 20:28
PROVIDERS: ADMIT Internal Medicine; ATTEND Internal Medicine
DX: K85.90 Acute pancreatitis without necrosis or infection, unspecified (principal); R56.9 Unspecified convulsions; D64.9 Anemia, unspecified; E66.9 Obesity, unspecified; I16.0 Hypertensive urgency; F12.90 Cannabis use, unspecified, uncomplicated; Z68.32 Body mass index [BMI] 32.0-32.9, adult; Z82.49 Family history of ischemic heart disease and other diseases of the circulatory system
CPT/HCPCS: 36415; 74176; 80053; 82962; 85025; 99285; C9113; J1885; J2060; J2270; J2405; J3490; J7030

== ENCOUNTER 2022-09-04 09:38 | Emergency (ER) | payer MEDICAID ==
[~2022-09-04] VITALS: Ht 172.7 cm; Wt 82.0 kg
[2022-09-04 09:41] VITALS: BP 132/76
[2022-09-04] MEDS ORDERED: ONDANSETRON HCL 4MG/2ML INJ IV STA (10:00)
[2022-09-04] MEDS ORDERED: HALOPERIDOL LACTATE 5MG/ML VIAL IM ONE (10:00)
[2022-09-04] MEDS ORDERED: SODIUM CHLORIDE 0.9% 1,000 ML IV ONE (10:00)
[2022-09-04 10:31] LABS: BASOPHILS % 0.4 % (0.0-2.0); EOSINOPHILS % 1.5 % (0.0-5.0); HEMATOCRIT. 39.6 % (42.0-52.0); LYMPHOCYTES % 18.1 % (20.0-50.0); MEAN CORPUSCULAR HEMOGLOBIN 27.3 pg (28.0-32.0); MEAN CORPUSCULAR VOLUME 83.6 fL (80.0-94.0); MEAN PLATELET VOLUME 8.3 fl (7.4-10.4); MONOCYTES % 7.1 % (2.0-8.0); NEUTROPHILS % 72.9 % (40.0-76.0); PLATELET 199 x1000/uL (130-400); RED BLOOD CELL COUNT 4.74 mill/uL (4.7-6.1); RED CELL DISTRIBUTION WIDTH 17.2 % (11.6-14.6)
[2022-09-04 10:37] LABS: CHLORIDE 106 mEq/L (98-107)
[2022-09-04 10:45] LABS: ETHANOL BLOOD < 10 mg/dL
== END 2022-09-04 11:16 | disposition left against medical advice (07) ==
LOC: ER 09:38
DX: K85.90 Acute pancreatitis without necrosis or infection, unspecified (principal); F12.10 Cannabis abuse, uncomplicated; Z53.21 Procedure and treatment not carried out due to patient leaving prior to being seen by health care provider; Z86.59 Personal history of other mental and behavioral disorders; Z79.899 Other long term (current) drug therapy
CPT/HCPCS: 36415; 71045; 80053; 80320; 83690; 85025; 96361; 96372; 96374; 99284; J1630; J2405; J7030; Z7610; G0480

== ENCOUNTER 2022-09-05 14:19 | Emergency (ER) | payer MEDICAID ==
[~2022-09-05] VITALS: Ht 167.6 cm; Wt 91.0 kg
[2022-09-05] MEDS ORDERED: KETOROLAC 30MG/ML VIAL IV ONE (15:45)
[2022-09-05] MEDS ORDERED: SODIUM CHLORIDE 0.9% 1,000 ML IV ONE (15:45)
[2022-09-05 15:53] LABS: BASOPHILS % 0.3 % (0.0-2.0); EOSINOPHILS % 0.5 % (0.0-5.0); HEMOGLOBIN. 14.1 g/dL (14.0-18.0); LYMPHOCYTES % 12.4 % (20.0-50.0); MEAN CORPUSCULAR VOLUME 83.2 fL (80.0-94.0); MEAN PLATELET VOLUME 8.6 fl (7.4-10.4); MONOCYTES % 4.5 % (2.0-8.0); NEUTROPHILS % 82.3 % (40.0-76.0); PLATELET 200 x1000/uL (130-400); RED BLOOD CELL COUNT 5.04 mill/uL (4.7-6.1); RED CELL DISTRIBUTION WIDTH 16.8 % (11.6-14.6)
[2022-09-05 16:04] LABS: CHLORIDE 107 mEq/L (98-107)
[2022-09-05 16:10] LABS: PROTHROMBIN TIME 11.2 sec (9.6-11.0)
[2022-09-05 16:11] LABS: ETHANOL BLOOD < 10 mg/dL
[2022-09-05] MEDS ORDERED: KETOROLAC 60MG/2ML VIAL IM ONE (16:15)
[2022-09-05] MEDS ORDERED: MAGNESIUM/ALUMINUM HYDROXIDE/SIMETHICONE 30ML UDC PO ONE (16:15)
[2022-09-05 17:55] VITALS: BP 127/84
== END 2022-09-05 17:57 | disposition home or self-care (01) ==
LOC: ER 14:26
DX: K85.90 Acute pancreatitis without necrosis or infection, unspecified (principal); F12.10 Cannabis abuse, uncomplicated; Z79.899 Other long term (current) drug therapy; Z86.59 Personal history of other mental and behavioral disorders
CPT/HCPCS: 36415; 80053; 80320; 83690; 85025; 85610; 96372; 99283; J1885; J7030; Z7610; G0480

== ENCOUNTER 2022-09-05 22:58 | Emergency (ER) | payer MEDICAID ==
[~2022-09-05] VITALS: Ht 167.6 cm; Wt 105.0 kg
[2022-09-06 00:15] VITALS: BP 164/78
[2022-09-06] MEDS ORDERED: ONDANSETRON 4MG ODT PO ONE (01:15)
[2022-09-07] MEDS ORDERED: ONDA4TAB50 MT (17:46)
== END 2022-09-06 01:42 | disposition home or self-care (01) ==
LOC: ER 23:25
DX: R10.9 Unspecified abdominal pain (principal); F12.10 Cannabis abuse, uncomplicated; Z79.899 Other long term (current) drug therapy; Z86.59 Personal history of other mental and behavioral disorders
CPT/HCPCS: 82962; 99283; Z7610

== ENCOUNTER 2022-09-06 01:55 | Emergency (ER) | payer MEDICAID ==
[~2022-09-06] VITALS: Ht 167.6 cm; Wt 105.0 kg
[2022-09-06] MEDS ORDERED: METOCLOPRAMIDE HCL 10MG/2ML VIAL IV STA (04:22)
[2022-09-06] MEDS ORDERED: FAMOTIDINE 20MG/2ML VIAL IV STA (04:22)
[2022-09-06 04:44] LABS: BASOPHILS % 0.3 % (0.0-2.0); EOSINOPHILS % 0.2 % (0.0-5.0); HEMATOCRIT. 43.4 % (42.0-52.0); HEMOGLOBIN. 14.4 g/dL (14.0-18.0); LYMPHOCYTES % 14.2 % (20.0-50.0); MEAN CORPUSCULAR HEMOGLOBIN 27.6 pg (28.0-32.0); MEAN CORPUSCULAR VOLUME 83.5 fL (80.0-94.0); MEAN PLATELET VOLUME 8.9 fl (7.4-10.4); MONOCYTES % 5.9 % (2.0-8.0); NEUTROPHILS % 79.4 % (40.0-76.0); PLATELET 267 x1000/uL (130-400); RED CELL DISTRIBUTION WIDTH 16.9 % (11.6-14.6)
[2022-09-06 05:16] LABS: CHLORIDE 103 mEq/L (98-107)
[2022-09-06 05:25] LABS: ETHANOL BLOOD < 10 mg/dL
[2022-09-06] MEDS ORDERED: KETOROLAC 15MG/ML VIAL IV ONE (05:30)
[2022-09-06] MEDS ORDERED: SODIUM CHLORIDE 0.9% 1,000 ML IV ONE (05:45)
[2022-09-06] MEDS ORDERED: MORPHINE SULFATE 4 MG/ML CPJ (NOT FOR IM USE) IV ONE (07:15)
[2022-09-06 07:28] VITALS: BP 167/89
[2022-09-07] MEDS ORDERED: ONDA4TAB50 MT (17:46)
== END 2022-09-06 12:12 | disposition home or self-care (01) ==
LOC: ER 01:55
DX: R10.9 Unspecified abdominal pain (principal); F12.10 Cannabis abuse, uncomplicated; Z79.899 Other long term (current) drug therapy
CPT/HCPCS: 36415; 80053; 80320; 83690; 85025; 96374; 96375; 99284; J1885; J2270; J2765; J3490; J7030; Z7610; G0480

== ENCOUNTER 2022-09-07 12:15 | Emergency (ER) | payer MEDICAID ==
[~2022-09-07] VITALS: Ht 167.6 cm; Wt 77.0 kg
[2022-09-07] MEDS ORDERED: LEVETIRACETAM 500MG PREMIX 100 ML IV ONE (13:15)
[2022-09-07] MEDS ORDERED: LEVETIRACETAM 500MG PREMIX 100 ML IV NR (13:15)
[2022-09-07] MEDS ORDERED: LEVETIRACETAM 1000MG PREMIX 100 ML IV NR (13:30)
[2022-09-07 14:10] LABS: BASOPHILS % 0.2 % (0.0-2.0); EOSINOPHILS % 0.1 % (0.0-5.0); HEMATOCRIT. 40.2 % (42.0-52.0); HEMOGLOBIN. 13.4 g/dL (14.0-18.0); MEAN CORPUSCULAR HEMOGLOBIN 27.7 pg (28.0-32.0); MEAN CORPUSCULAR VOLUME 83.3 fL (80.0-94.0); MEAN PLATELET VOLUME 8.3 fl (7.4-10.4); MONOCYTES % 6.1 % (2.0-8.0); NEUTROPHILS % 80.6 % (40.0-76.0); PLATELET 224 x1000/uL (130-400); RED BLOOD CELL COUNT 4.83 mill/uL (4.7-6.1); RED CELL DISTRIBUTION WIDTH 16.6 % (11.6-14.6)
[2022-09-07 14:25] LABS: CHLORIDE 102 mEq/L (98-107)
[2022-09-07] MEDS ORDERED: MORPHINE SULFATE 4 MG/ML CPJ (NOT FOR IM USE) IV ONE (17:45)
[2022-09-07] MEDS ORDERED: ONDA4TAB50 MT (17:46)
[2022-09-07 18:15] VITALS: BP 144/86
== END 2022-09-07 18:14 | disposition home or self-care (01) ==
LOC: ER 12:45
DX: K31.84 Gastroparesis (principal); R10.9 Unspecified abdominal pain; G89.29 Other chronic pain; R11.2 Nausea with vomiting, unspecified; F12.10 Cannabis abuse, uncomplicated; Z79.899 Other long term (current) drug therapy
CPT/HCPCS: 36415; 80053; 83735; 85025; 93005; 96365; 96375; 99284; J1953; J2270

== ENCOUNTER 2022-10-12 15:24 | Emergency (ER) | payer MEDICAID ==
[~2022-10-12] VITALS: Ht 167.6 cm; Wt 96.0 kg
[2022-10-12 15:37] VITALS: BP 153/99
[2022-10-12] MEDS ORDERED: ONDANSETRON 4MG ODT PO STA (15:46)
== END 2022-10-12 18:22 | disposition left against medical advice (07) ==
LOC: ER 15:24
DX: R10.9 Unspecified abdominal pain (principal)
CPT/HCPCS: 99283

== ENCOUNTER 2022-10-27 13:34 | Emergency (ER) | payer MEDICAID ==
[~2022-10-27] VITALS: Ht 167.6 cm; Wt 100.0 kg
[2022-10-27 13:38] VITALS: BP 151/94
[2022-10-27] MEDS ORDERED: ONDANSETRON 4MG ODT PO STA (13:49)
[2022-10-27] MEDS ORDERED: FAMOTIDINE 20MG TABLET PO ONE (14:00)
[2022-10-27] MEDS ORDERED: HALOPERIDOL LACTATE 5MG/ML VIAL IM ONE (14:00)
[2022-10-27] MEDS ORDERED: LEVETIRACETAM 500MG TABLET PO ONE (14:00)
[2022-10-27] MEDS ORDERED: DIPHENHYDRAMINE 50MG/ML VIAL IM ONE (14:00)
[2022-10-27 14:54] LABS: BASOPHILS % 0.6 % (0.0-2.0); EOSINOPHILS % 0.9 % (0.0-5.0); HEMATOCRIT. 40.6 % (42.0-52.0); HEMOGLOBIN. 13.2 g/dL (14.0-18.0); LYMPHOCYTES % 14.8 % (20.0-50.0); MEAN CORPUSCULAR HEMOGLOBIN 27.6 pg (28.0-32.0); MEAN CORPUSCULAR VOLUME 84.7 fL (80.0-94.0); MONOCYTES % 4.9 % (2.0-8.0); NEUTROPHILS % 78.8 % (40.0-76.0); PLATELET 157 x1000/uL (130-400); RED BLOOD CELL COUNT 4.79 mill/uL (4.7-6.1); RED CELL DISTRIBUTION WIDTH 16.1 % (11.6-14.6)
[2022-10-27 15:02] LABS: CHLORIDE 104 mEq/L (98-107)
[2022-10-27 15:11] LABS: ETHANOL BLOOD < 10 mg/dL
[2022-10-27] MEDS ORDERED: SODIUM CHLORIDE 0.9% 1,000 ML IV ONE ×2 (15:45)
== END 2022-10-27 16:36 | disposition left against medical advice (07) ==
LOC: ER 13:34 → EDBEDREQ 16:23 → ER 16:36 → CANBEDREQ 10-28 23:09
DX: K85.90 Acute pancreatitis without necrosis or infection, unspecified (principal); R10.13 Epigastric pain; R56.9 Unspecified convulsions; F12.90 Cannabis use, unspecified, uncomplicated; Z87.891 Personal history of nicotine dependence
CPT/HCPCS: 36415; 80053; 80320; 83690; 85025; 96372; 99284; J1200; J1630; J7030; Q0162; Z7610; G0480

== ENCOUNTER 2022-12-02 10:28 | Inpatient (IN) | payer MEDICAID ==
[~2022-12-02] VITALS: Ht 167.6 cm; Wt 100.3 kg
[2022-12-02] MEDS ORDERED: MORPHINE SULFATE 4 MG/ML CPJ (NOT FOR IM USE) IV STA (10:47)
[2022-12-02] MEDS ORDERED: ONDANSETRON HCL 4MG/2ML INJ IV STA (10:47)
[2022-12-02] MEDS ORDERED: SODIUM CHLORIDE 0.9% 1,000 ML IV ONE (11:00)
[2022-12-02 11:18] LABS: CHLORIDE 104 mEq/L (98-107)
[2022-12-02 11:29] LABS: BASOPHILS % 0.3 % (0.0-2.0); EOSINOPHILS % 0.6 % (0.0-5.0); HEMATOCRIT. 40.5 % (42.0-52.0); HEMOGLOBIN. 13.6 g/dL (14.0-18.0); LYMPHOCYTES % 11.2 % (20.0-50.0); MEAN CORPUSCULAR VOLUME 83.3 fL (80.0-94.0); MEAN PLATELET VOLUME 8.5 fl (7.4-10.4); MONOCYTES % 4.7 % (2.0-8.0); NEUTROPHILS % 83.2 % (40.0-76.0); PLATELET 182 x1000/uL (130-400); RED BLOOD CELL COUNT 4.87 mill/uL (4.7-6.1); RED CELL DISTRIBUTION WIDTH 15.2 % (11.6-14.6)
[2022-12-02 11:35] LABS: PROTHROMBIN TIME 10.9 sec (9.6-11.0)
[2022-12-02] MEDS: ONDANSETRON HCL 4MG/2ML INJ IV NR ×2 (14:45→19:40)
[2022-12-02] MEDS ORDERED: MORPHINE SULFATE 4 MG/ML CPJ (NOT FOR IM USE) IV NR (14:45)
[2022-12-02 15:01] LABS: CLARITY URINE CLEAR (CLEAR); COLOR URINE YELLOW (YELLOW); KETONES URINE NEGATIVE (NEGATIVE); LEUKOCYTE ESTERASE URINE NEGATIVE (NEGATIVE); NITRITE URINE NEGATIVE (NEGATIVE); OCCULT BLOOD URINE 2+ (NEGATIVE); PH URINE 5.5 (4.5-8.0); PROTEIN URINE 2+ (NEGATIVE); SPECIFIC GRAVITY URINE 1.016 (1.005-1.030); UROBILINOGEN URINE 0.2 E.U./dL (0.2-1.0)
[2022-12-02] MEDS ORDERED: DEXTROSE 50% WATER 50ML SYRINGE IV PRN (17:45)
[2022-12-02] MEDS ORDERED: HYDROCODONE/ACETAMINOPHEN 5/325MG TABLET PO PRN (17:45)
[2022-12-02] MEDS: SODIUM CHLORIDE 0.9% 1,000 ML IV SCH ×2 (17:54→20:06)
[2022-12-02] MEDS ORDERED: NALOXONE HCL 0.4MG/ML VIAL IV PRN (18:00)
[2022-12-02] MEDS: LORAZEPAM 2MG/ML CPJ IV PRN (19:37)
[2022-12-02] MEDS: HYDRALAZINE 20MG/ML VIAL IV PRN (19:38)
[2022-12-02 20:00] VITALS: BP 135/77; PULSE 97; RESP 20; TEMP 98.1
[2022-12-02] MEDS: BLOOD SUGAR DIAGNOSTIC STRIP TEST SCH (20:25)
[2022-12-02] MEDS: LEVETIRACETAM 500MG TABLET PO SCH (20:29)
[2022-12-02] MEDS: INSULIN LISPRO 100 UNITS/ML SUBCUT SCH (20:39)
[2022-12-02 21:50] VITALS: BP 156/72; PULSE 84; RESP 19; TEMP 97.4
[2022-12-03] VITALS (7 sets, daily range): BP systolic 109–179; BP diastolic 59–93; PULSE 84–97; RESP 18–20; TEMP 97.4–98.8; O2SAT 98
[2022-12-03] MEDS ORDERED: CLONIDINE 0.2MG TABLET PO PRN (00:15)
[2022-12-03] MEDS: LORAZEPAM 2MG/ML CPJ IV PRN (05:18)
[2022-12-03] MEDS: KETOROLAC 15MG/ML VIAL IV PRN ×2 (05:29→12:59)
[2022-12-03] MEDS: BLOOD SUGAR DIAGNOSTIC STRIP TEST SCH (06:15)
[2022-12-03] MEDS: INSULIN LISPRO 100 UNITS/ML SUBCUT SCH (06:16)
[2022-12-03] MEDS ORDERED: ONDANSETRON HCL 4MG/2ML INJ IV PRN (06:45)
[2022-12-03 07:31] LABS: CHLORIDE 105 mEq/L (98-107)
[2022-12-03] MEDS ORDERED: PANTOPRAZOLE SODIUM 40 MG/VIAL IV SCH (09:00)
[2022-12-03] MEDS ORDERED: AMLO10TA80 MT (10:05)
[2022-12-03] MEDS: LEVETIRACETAM 500MG TABLET PO SCH (10:47)
[2022-12-03] MEDS: HYDRALAZINE 20MG/ML VIAL IV PRN (12:59)
== END 2022-12-03 15:45 | disposition home or self-care (01) | DRG 282 ==
LOC: ER 10:28 → 8WST 12:42 → EDBEDREQTM 12:55 → EDBEDREQ 12:55 → EDBEDREQSVC 17:20 → 7EST 12-03 13:10
PROVIDERS: ADMIT Internal Medicine; ATTEND Internal Medicine
DX: K85.90 Acute pancreatitis without necrosis or infection, unspecified (principal); E87.1 Hypo-osmolality and hyponatremia; E11.65 Type 2 diabetes mellitus with hyperglycemia; G40.909 Epilepsy, unspecified, not intractable, without status epilepticus; I10 Essential (primary) hypertension; E66.9 Obesity, unspecified; Z82.49 Family history of ischemic heart disease and other diseases of the circulatory system; Z68.35 Body mass index [BMI] 35.0-35.9, adult; Z79.4 Long term (current) use of insulin
CPT/HCPCS: 36415; 80048; 80053; 81003; 82962; 85025; 99285; C9113; J0360; J1885; J2060; J2270; J2405; J7030

== ENCOUNTER 2022-12-08 13:12 | Emergency (ER) | payer MEDICAID ==
[~2022-12-08] VITALS: Ht 175.3 cm; Wt 80.0 kg
[~2022-12-08 13:12] MED LIST changes: +AMLO10TA80 MT
[2022-12-08 13:20] VITALS: BP 172/90; PULSE 96; RESP 18; TEMP 98.3; O2SAT 98
[2022-12-08] MEDS ORDERED: METOCLOPRAMIDE HCL 5MG TABLET PO NR (15:30)
[2022-12-08] MEDS ORDERED: KETOROLAC 30MG/ML VIAL IM NR (15:30)
[2022-12-08] MEDS ORDERED: ACETAMINOPHEN 325MG TABLET PO NR (15:30)
[2022-12-08] MEDS ORDERED: METOCLOPRAMIDE HCL 10MG TABLET PO NR (15:45)
[2022-12-08] MEDS ORDERED: TOPUD MT (16:03)
[2022-12-08] MEDS ORDERED: ONDA4TAB11 PO (16:03)
== END 2022-12-08 16:49 | disposition home or self-care (01) ==
LOC: ER 13:32
DX: R51.9 Headache, unspecified (principal); Z79.899 Other long term (current) drug therapy; Z98.890 Other specified postprocedural states; Z86.59 Personal history of other mental and behavioral disorders
CPT/HCPCS: 99285; 70450; 96372; J8597 ×2; J1885

== ENCOUNTER 2022-12-15 19:11 | Emergency (ER) | payer MEDICAID ==
[~2022-12-15] VITALS: Ht 172.7 cm; Wt 100.0 kg
[~2022-12-15 19:11] MED LIST changes: +ONDA4TAB11 PO; +TOPUD MT
[2022-12-15 19:14] VITALS: O2SAT 98
[2022-12-15 19:46] VITALS: BP 170/90; PULSE 85; RESP 19; TEMP 98.8
== END 2022-12-16 08:39 | disposition left against medical advice (07) ==
LOC: ER 19:11
DX: Z53.21 Procedure and treatment not carried out due to patient leaving prior to being seen by health care provider (principal)
CPT/HCPCS: 99281

== ENCOUNTER 2023-02-09 10:40 | Emergency (ER) | payer MEDICAID ==
[~2023-02-09] VITALS: Ht 170.2 cm; Wt 90.0 kg
[2023-02-09 10:40] VITALS: BP 151/120; PULSE 104; RESP 18; TEMP 98.3; O2SAT 98
[~2023-02-09 10:40] MED LIST changes: +MAGNESIUM/ALUMINUM HYDROXIDE/SIMETHICONE 30ML UDC PO STA
== END 2023-02-09 13:11 | disposition left against medical advice (07) ==
LOC: ER 10:40
DX: R10.9 Unspecified abdominal pain (principal); I10 Essential (primary) hypertension; Z79.899 Other long term (current) drug therapy
CPT/HCPCS: 99283

== ENCOUNTER 2023-03-24 01:42 | Emergency (ER) | payer MEDICAID ==
[~2023-03-24] VITALS: Ht 170.2 cm; Wt 91.0 kg
[~2023-03-24 01:42] MED LIST changes: -MAGNESIUM/ALUMINUM HYDROXIDE/SIMETHICONE 30ML UDC PO STA
[2023-03-24 01:46] VITALS: BP 175/108; PULSE 88; RESP 18; TEMP 98.8; O2SAT 99
[2023-03-24] MEDS ORDERED: DICY20TA2 MT (05:43)
[2023-03-24] MEDS ORDERED: ONDA4TAB50 MT (05:43)
[2023-03-24] MEDS ORDERED: KETOROLAC 60MG/2ML VIAL IM ONE (05:45)
[2023-03-24] MEDS ORDERED: DICYCLOMINE HCL 10MG/ML 2ML VIAL IM ONE (05:45)
[2023-03-24 05:57] LABS: BASOPHILS % 0.5 % (0.0-2.0); EOSINOPHILS % 0.6 % (0.0-5.0); HEMATOCRIT. 39.4 % (42.0-52.0); HEMOGLOBIN. 13.3 g/dL (14.0-18.0); LYMPHOCYTES % 17.9 % (20.0-50.0); MEAN CORPUSCULAR HEMOGLOBIN 28.4 pg (28.0-32.0); MEAN CORPUSCULAR HGB CONC 33.8 g/dL (31.0-37.0); MEAN PLATELET VOLUME 8.4 fl (7.4-10.4); MONOCYTES % 6.2 % (2.0-8.0); NEUTROPHILS % 74.8 % (40.0-76.0); PLATELET 206 x1000/uL (130-400); RED BLOOD CELL COUNT 4.69 mill/uL (4.7-6.1); RED CELL DISTRIBUTION WIDTH 14.8 % (11.6-14.6); WHITE BLOOD COUNT 9.9 x1000/uL (4.5-11.0)
[2023-03-24 06:47] LABS: CHLORIDE 104 mEq/L (98-107); INDEX HEMOLYSI 1 (1-3); INDEX ICTERIC 1 (1-4); INDEX LIPEMIC 1 (1-3); POTASSIUM 3.8 mEq/L (3.5-5.1); SODIUM 137 mEq/L (136-145)
[2023-03-24 06:55] LABS: ALANINE AMINOTRANSFERASE 33 IU/L (13-61); ALBUMIN 3.6 g/dL (3.4-5.0); ASPARTATE AMINOTRANSFERASE 20 IU/L (15-37); BILIRUBIN TOTAL 0.7 mg/dL (0.1-1.0); CALCIUM 9.2 mg/dL (8.5-10.1); CARBON DIOXIDE 25 mEq/L (21-32); CREATININE 0.9 mg/dL (0.6-1.3); ETHANOL BLOOD < 10 mg/dL (<10); GLUCOSE 141 mg/dL (70-105); PROTEIN TOTAL 7.2 g/dL (6.0-8.3); UREA NITROGEN BLOOD 18 mg/dL (7-21)
[2023-03-24] MEDS ORDERED: LEVE10006 PO (13:02)
[2023-03-24] MEDS ORDERED: ASPI-1160 PO (13:02)
[2023-03-24] MEDS ORDERED: METF-416 PO (13:02)
[2023-03-24] MEDS ORDERED: HYDR25TA PO (13:02)
[2023-03-24] MEDS ORDERED: ATOR-2 PO (13:02)
== END 2023-03-24 05:55 | disposition home or self-care (01) ==
LOC: ER 01:42
DX: G89.29 Other chronic pain (principal); R10.13 Epigastric pain; I10 Essential (primary) hypertension; Z79.899 Other long term (current) drug therapy; Z79.82 Long term (current) use of aspirin
CPT/HCPCS: 80053; 80320; 83690; 85025; 36415; 99283; J0500; J1885; G0480

== ENCOUNTER 2023-03-24 06:34 | Emergency (ER) | payer MEDICAID ==
[~2023-03-24] VITALS: Ht 170.2 cm; Wt 91.0 kg
[~2023-03-24 06:34] MED LIST changes: +DICY20TA2 MT
[2023-03-24 06:45] VITALS: O2SAT 99
[2023-03-24] MEDS ORDERED: ONDANSETRON HCL 4MG/2ML INJ IV STA (07:13)
[2023-03-24] MEDS ORDERED: MORPHINE SULFATE 4 MG/ML CPJ (NOT FOR IM USE) IV STA (07:13)
[2023-03-24] MEDS ORDERED: SODIUM CHLORIDE 0.9% 1,000 ML IV ONE (07:15)
[2023-03-24 07:16] LABS: BASOPHILS % 0.5 % (0.0-2.0); EOSINOPHILS % 0.8 % (0.0-5.0); HEMATOCRIT. 39.8 % (42.0-52.0); HEMOGLOBIN. 13.2 g/dL (14.0-18.0); LYMPHOCYTES % 19.2 % (20.0-50.0); MEAN CORPUSCULAR HEMOGLOBIN 27.8 pg (28.0-32.0); MEAN CORPUSCULAR VOLUME 84.3 fL (80.0-94.0); MEAN PLATELET VOLUME 8.4 fl (7.4-10.4); MONOCYTES % 7.1 % (2.0-8.0); NEUTROPHILS % 72.4 % (40.0-76.0); PLATELET 192 x1000/uL (130-400); RED BLOOD CELL COUNT 4.73 mill/uL (4.7-6.1); RED CELL DISTRIBUTION WIDTH 14.9 % (11.6-14.6); WHITE BLOOD COUNT 7.9 x1000/uL (4.5-11.0)
[2023-03-24 07:18] LABS: CHLORIDE 105 mEq/L (98-107); INDEX HEMOLYSI 1 (1-3); INDEX ICTERIC 1 (1-4); INDEX LIPEMIC 1 (1-3); INR 1.1; POTASSIUM 3.8 mEq/L (3.5-5.1); PROTHROMBIN TIME 11.3 sec (9.6-11.0); SODIUM 138 mEq/L (136-145)
[2023-03-24 07:28] LABS: ALANINE AMINOTRANSFERASE 37 IU/L (13-61); ALBUMIN 3.5 g/dL (3.4-5.0); ASPARTATE AMINOTRANSFERASE 22 IU/L (15-37); BILIRUBIN TOTAL 0.8 mg/dL (0.1-1.0); CALCIUM 8.9 mg/dL (8.5-10.1); CARBON DIOXIDE 26 mEq/L (21-32); CREATININE 0.9 mg/dL (0.6-1.3); GLUCOSE 143 mg/dL (70-105); PROTEIN TOTAL 7.2 g/dL (6.0-8.3); TROPONIN I HIGH SENSITIVITY 9 ng/L (<78); UREA NITROGEN BLOOD 19 mg/dL (7-21)
[2023-03-24] MEDS ORDERED: MORPHINE SULFATE 4 MG/ML CPJ (NOT FOR IM USE) IV NR (08:45)
[2023-03-24] MEDS ORDERED: ONDANSETRON HCL 4MG/2ML INJ IV NR (08:45)
[2023-03-24] MEDS ORDERED: IPRATROPIUM/ALBUTEROL 0.5-3(2.5)MG/3ML NEB HHN PRN (12:00)
[2023-03-24] MEDS ORDERED: GUAIFENESIN 200MG/10ML SUGAR FREE UDC PO PRN (12:00)
[2023-03-24] MEDS ORDERED: ACETAMINOPHEN 650MG/20.3ML UDC GT PRN ×2 (12:00)
[2023-03-24] MEDS ORDERED: MAGNESIUM/ALUMINUM HYDROXIDE/SIMETHICONE 30ML UDC PO PRN (12:00)
[2023-03-24] MEDS ORDERED: CLONIDINE 0.1MG TABLET PO PRN (12:00)
[2023-03-24] MEDS ORDERED: DOCUSATE SODIUM 100MG CAPSULE PO PRN (12:00)
[2023-03-24] MEDS ORDERED: THIAMINE HCL 100MG TABLET PO SCH (12:26)
[2023-03-24] MEDS ORDERED: MULTIVITAMINS,THER W-MINERALS TABLET PO SCH (12:27)
[2023-03-24] MEDS ORDERED: ENOXAPARIN 40MG/0.4ML SYR SUBCUT SCH (12:32)
[2023-03-24] MEDS ORDERED: KETOROLAC 15MG/ML VIAL IV PRN (12:45)
[2023-03-24] MEDS ORDERED: HYDR25TA PO (13:02)
[2023-03-24] MEDS ORDERED: ATOR-2 PO (13:02)
[2023-03-24] MEDS ORDERED: LEVE10006 PO (13:02)
[2023-03-24] MEDS ORDERED: METF-416 PO (13:02)
[2023-03-24] MEDS ORDERED: ASPI-1160 PO (13:02)
[2023-03-24 13:07] LABS: INDEX HEMOLYSI 1 (1-3); INDEX ICTERIC 1 (1-4); INDEX LIPEMIC 1 (1-3)
[2023-03-24 13:14] LABS: AMYLASE 251 IU/L (25-115); CHOLESTEROL 152 mg/dL (<200); ETHANOL BLOOD < 10 mg/dL (<10); HDL CHOLESTEROL 32 mg/dL (40-59); IRON 71 ug/dL (50-175); LDL CHOLESTEROL 97 mg/dL (5-100); TOTAL IRON BINDING CAPACITY 347 ug/dL (250-450); TRIGLYCERIDE 195 mg/dL (0-150)
[2023-03-24] MEDS ORDERED: DEXTROSE 50% WATER 50ML SYRINGE IV PRN (13:15)
[2023-03-24] MEDS ORDERED: INSULIN LISPRO 100 UNITS/ML SUBCUT SCH (13:20)
[2023-03-24 13:50] LABS: VITAMIN B12 SERUM 266 pg/mL (211-911)
[2023-03-24] MEDS: PANTOPRAZOLE SODIUM 40 MG/VIAL IV SCH ×2 (15:53→16:56)
[2023-03-24] MEDS: MVI, ADULT NO.1 10 ML, FOLIC ACID 1 MG, THIAMINE HCL 100 MG in SODIUM CHLORIDE 0.9% 1,0... IV SCH ×8 (15:54→16:56)
[2023-03-24 16:31] VITALS: BP 160/86; PULSE 77; RESP 16; TEMP 98.5
[2023-03-24] MEDS: BLOOD SUGAR DIAGNOSTIC STRIP TEST SCH ×2 (16:56→17:23)
[2023-03-24] MEDS ORDERED: LEVETIRACETAM 500MG TABLET PO SCH (17:00)
[2023-03-24] MEDS ORDERED: MEDICATION NOT ON FORMULARY EA (Levetiracetam (Keppra) 1 TAB) MT SCH (17:00)
[2023-03-24] MEDS ORDERED: MEDICATION NOT ON FORMULARY EA (Atorvastatin Calcium 1 TAB) PO SCH (21:00)
[2023-03-24] MEDS ORDERED: ATORVASTATIN CALCIUM 40MG TABLET PO SCH (21:00)
[2023-03-25] MEDS ORDERED: FOLIC ACID 1MG TABLET PO SCH (09:00)
[2023-03-25] MEDS ORDERED: ASPIRIN 81MG TABLET PO SCH (09:00)
[2023-03-25] MEDS ORDERED: HYDROCHLOROTHIAZIDE 25MG TABLET PO SCH (09:00)
[2023-03-30] MEDS ORDERED: PANT40TA51 PO (13:01)
== END 2023-03-24 19:55 | disposition left against medical advice (07) ==
LOC: ER 06:34 → EDBEDREQ 10:04 → CANBEDREQ 19:18 → ER 19:55
DX: R10.13 Epigastric pain (principal); Z79.899 Other long term (current) drug therapy
CPT/HCPCS: 80061; 80053; 80320; 82150; 82607; 82746; 83036; 83540; 83550; 83690; 85025; 85610; 84484; 36415; 76700; 96368; 96361; 96365; 96372; 96375; 99285; J1650; J3490 ×2; J1885; J2405; C9113; J3411; J2270; J7030; Z7610 ×4; 96367; G0480

== ENCOUNTER 2023-03-27 11:37 | Emergency (ER) | payer MEDICAID ==
[~2023-03-27] VITALS: Ht 170.2 cm; Wt 91.0 kg
[~2023-03-27 11:37] MED LIST changes: +ASPI-1160 PO; +ATOR-2 PO; +HYDR25TA PO; +LEVE10006 PO; +METF-416 PO
[2023-03-27 11:51] VITALS: BP 173/98; PULSE 91; RESP 16; TEMP 98.1; O2SAT 95
== END 2023-03-27 14:54 | disposition home or self-care (01) ==
LOC: ER 11:40
DX: G89.29 Other chronic pain (principal); R10.9 Unspecified abdominal pain; Z79.899 Other long term (current) drug therapy
CPT/HCPCS: 99283

== ENCOUNTER 2023-03-31 17:33 | Emergency (ER) | payer MEDICAID ==
[~2023-03-31] VITALS: Ht 167.6 cm; Wt 100.0 kg
[~2023-03-31 17:33] MED LIST changes: -FAMO-135 MT; -LEVE1000 MT; -LEVE10006 PO; -MAG-55 MT; -METF-416 PO; -NALO4SPR BOTHNSTRLS; -ONDA4TAB11 PO; -ONDA8TAB13 MT; +PANT40TA51 PO; -PROT40 MT; -TOPUD MT; -TRAM-529 MT
[2023-03-31 17:46] VITALS: BP 176/112; PULSE 107; RESP 20; TEMP 97.5; O2SAT 97
[2023-04-08] MEDS ORDERED: KEPP500 MT (13:14)
== END 2023-03-31 19:59 | disposition home or self-care (01) ==
LOC: ER 19:18
DX: R10.816 Epigastric abdominal tenderness (principal)
CPT/HCPCS: 99283